=== PATIENT | male | born 1985 | race Caucasian/White ===

== ENCOUNTER 2019-11-03 22:50 | Emergency (ER) | payer SELFPAY ==
[2019-11-03 23:03] VITALS: BP 142/88; PULSE 87; RESP 18; TEMP 36.1; O2SAT 93; BMI 35.5
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
--- NOTE | 2019-11-03 23:20 | PC.NURSE ---
patient has chow to bilateral hands, thumb, 2nd, and 3rd digits, reddened and pink in appearance.
[2019-11-03 23:22] VITALS: PULSE 80; RESP 16; O2SAT 97
== END 2019-11-04 00:21 | disposition home or self-care (01) ==
PROVIDERS: Emergency Provider Nurse Practitioner Family; PCP Family Medicine
DX: T23.161A Burn of first degree of back of right hand, initial encounter (principal); T23.162A Burn of first degree of back of left hand, initial encounter; X19.XXXA Contact with other heat and hot substances, initial encounter
CPT/HCPCS: 12345; 16000; 99281; 99282

== ENCOUNTER → 2022-05-11 14:00 | Outpatient (BNVA) | payer BC, SELFPAY | PROVIDERS: PCP Family Medicine; Visit Provider Family Medicine | DX: Z51.81 Encounter for therapeutic drug level monitoring (principal); E11.9 Type 2 diabetes mellitus without complications; Z13.220 Encounter for screening for lipoid disorders; K42.9 Umbilical hernia without obstruction or gangrene; Z00.00 Encounter for general adult medical examination without abnormal findings | CPT/HCPCS: 80053; 80061; 83036; 83721; 85025 ==

== ENCOUNTER 2023-08-24 07:41 | Inpatient (IN) | payer BC, SELFPAY ==
[2023-08-24] VITALS (11 sets, daily range): BP systolic 118–150; BP diastolic 68–85; PULSE 66–93; RESP 16–24; TEMP 36.2–37.1; O2SAT 92–98; BMI 28.1; BMI 29.2
--- NOTE | 2023-08-24 07:52 | W.ED.ABDPA2 ---
HPI - Abdominal Pain General: Chief Complaint: Abdominal Pain Stated Complaint: abd pain Time Seen by Provider: 08/24/23 07:47 Source: patient Mode of arrival: ambulatory History of Present Illness: 37-year-old male presents emergency room with severe abdominal pain. He states he has an umbilical hernia that they consider repairing a few years ago but because of the COVID pandemic it was not felt to be emergent and was delayed. He generally not been bothering him the last while so they had not pursued treatment. Yesterday it began to worsen including nausea and vomiting. He is persistent worsening pain today. No previous abdominal surgeries. MD elicited complaint: abdominal pain Onset (ago): day(s) (2) Pain Consistency: constant Location: Periumbilical Severity: moderate Quality: cramping Exacerbating factors: nothing Relieving factors: nothing Associated Symptoms: Reports nausea and vomiting; Denies no associated symptoms, anorexia, belching, bloating, change in bowel habits, change in stool character, chills, coffee ground emesis, constipation, GI cramping, diarrhea, dyspepsia, dysuria, excessive flatus, fever(s), heartburn, hematochezia, hematuria, hematemesis, fecal incontinence, loose stools, melena, poor appetite, syncope and other Review of Systems Const: Denies: fever(s) or chills Card: Denies: chest pain or syncope Resp: Denies: dyspnea GI: Reports: abdominal pain, nausea and vomiting; Denies: hematemesis, coffee ground emesis, heartburn, diarrhea, constipation, bloating, GI cramping, belching, excessive flatus, fecal incontinence, change in bowel habits, change in stool character, hematochezia, melena or other : Denies: flank pain, dysuria, urinary frequency, urinary urgency or hematuria Musc: Denies: neck pain or back pain Skin/Breast: Denies: rash PFSH ED PFSH: Medical History Umbilical hernia Hypertension Diabetes Family History Denies family history of Anesthesia complication Bleeding disorder Social History Smoking and tobacco/nicotine status: never used tobacco/nicotine Alcohol intake: current Alcohol intake frequency: holidays/special occasions only Alcohol type: beer Substance/Drug Use: never Physical Exam Const: GENERAL APPEARANCE: cooperative and comfortable ORIENTATION/CONSCIOUSNESS: Yes awake, Yes oriented to person, Yes oriented to place and Yes oriented to time HENMT: COMMON NORMALS: normocephalic, atraumatic and hearing grossly normal bilaterally HEAD & SCALP: normocephalic and atraumatic Resp: COMMON NORMALS: normal respiratory effort, No retractions, No use of accessory muscles and clear to auscultation bilaterally AUSCULTATION: clear to auscultation bilaterally Cardio: COMMON NORMALS: regular rate, regular rhythm and No murmurs present (Cardio) RATE: regular rate RHYTHM: regular rhythm GI: COMMON NORMALS: No hepatosplenomegaly present AUSCULTATION: Yes normoactive bowel sounds PALPATION: Yes Tenderness to palpation present (GI) (Periumbilical), No Guarding due to palpation present (GI) and Yes No hepatosplenomegaly present OTHER: Incarcerated supraumbilical hernia able to partially reduce, exquisitely uncomfortable for patient. : COMMON NORMALS: Yes no CVA tenderness BLADDER/KIDNEY EXAM: Yes no CVA tenderness Back/Pelvis: COMMON NORMALS: no CVA tenderness Extremity: COMMON NORMALS: normal to inspection, capillary refill normal, no clubbing, cyanosis or edema, no calf tenderness and no pedal edema Neuro: SENSORIUM/ORIENTATION: Yes oriented to person, Yes oriented to place and Yes oriented to time Skin: COMMON NORMALS: no rashes or lesions noted GENERAL SKIN EXAM: no rashes or lesions noted Course Vital Signs: Vital signs: Vital Signs Temperature 98.0 F 08/24/23 07:54 Pulse Rate 93 08/24/23 07:54 Respiratory Rate 18 08/24/23 11:37 Blood Pressure 118/76 08/24/23 09:10 Pulse Oximetry 98 08/24/23 11:37 Oxygen Delivery Me thod Room Air 08/24/23 10:01 MDM - Abdominal Pain Medical Decision Making Patient has incarcerated omental fat and umbilical hernia which is nonreducible. On CT he does have a high-grade bowel obstruction with a transition point. Discussed with surgery will admit consult medicine for management of his diabetes. Fluids given and she started placement confirmed. Dr. Celis is attending he will see the patient on the floor. Medical Records I reviewed the patient's medical records. Lab Data I reviewed the patient's lab results. 08/24/23 08:00 08/24/23 08:00 Labs/Radiology: Laboratory Results WBC 11.12 10^3/uL (3.29-11.43) 08/24/23 08:00 RBC 5.23 10^6/uL (3.85-5.65) 08/24/23 08:00 Hgb 15.50 g/dL (11.27-16.99) 08/24/23 08:00 Hct 45.3 % (37-53) 08/24/23 08:00 MCV 86.6 fl (82-101) 08/24/23 08:00 MCH 29.6 pg (27-33) 08/24/23 08:00 MCHC 34.2 g/dL (30-55) 08/24/23 08:00 RDW 12.6 % (12.1-15.1) 08/24/23 08:00 Plt Count 251 10^3/cmm (157-399) 08/24/23 08:00 MPV 9.7 fL (7.4-10.4) 08/24/23 08:00 Neut % (Auto) 79.4 % 08/24/23 08:00 Lymph % (Auto) 11.3 % 08/24/23 08:00 [place] % (Auto) 8.4 % 08/24/23 08:00 Eos % (Auto) 0.4 % 08/24/23 08:00 Baso % (Auto) 0.2 % 08/24/23 08:00 Neut # (Auto) 8.84 10^3/uL (1.8-7.7) H 08/24/23 08:00 Lymph # (Auto) 1.3 10^3/uL (0.8-4.8) 08/24/23 08:00 [place] # (Auto) 0.9 10^3/uL (0.2-0.9) 08/24/23 08:00 Eos # (Auto) 0.0 10^3/uL (0.0-0.8) 08/24/23 08:00 Baso # (Auto) 0.0 10^3/uL (0.0-0.1) 08/24/23 08:00 Nucleated RBC % (auto) 0 % 08/24/23 08:00 Nucleated RBCs # 0.0 /100WBC 08/24/23 08:00 Sodium 134 mmol/L (136-145) L 08/24/23 08:00 Potassium 4.0 mmol/L (3.5-5.1) 08/24/23 08:00 Chloride 101 mmol/L (98-107) 08/24/23 08:00 Carbon Dioxide 21 mmol/L (22-29) L 08/24/23 08:00 Anion Gap 16.0 (5-19) 08/24/23 08:00 BUN 15 mg/dL (6-20) 08/24/23 08:00 Creatinine 0.8 mg/dL (0.7-1.2) 08/24/23 08:00 GFR Calculation 108.8 mL/min (90-130) 08/24/23 08:00 Glucose 246 mg/dL (65-115) H 08/24/23 08:00 Calculated Osmolality 287 mOsm/kg (285-295) 08/24/23 08:00 Calcium 8.9 mg/dL (8.5-10.5) 08/24/23 08:00 Total Bilirubin 0.6 mg/dL (0.15-1.2) 08/24/23 08:00 AST 11 U/L (0-40) 08/24/23 08:00 ALT 12 U/L (0-41) 08/24/23 08:00 Alkaline Phosphatase 78 U/L (40-130) 08/24/23 08:00 Total Protein 7.3 g/dL (6.6-8.7) 08/24/23 08:00 Albumin 4.0 g/dL (3.5-5.2) 08/24/23 08:00 Globulin 3.3 g/dL (1.3-4.6) 08/24/23 08:00 Lipase 22 U/L (13-60) 08/24/23 08:00 Urine Color Yellow (Yellow) 08/24/23 08:10 Urine Appearance Clear (CLEAR) 08/24/23 08:10 Urine pH 5 (5-7) 08/24/23 08:10 Ur Specific [place] 1.025 (1.005-1.030) 08/24/23 08:10 Urine Protein Neg (Negative) 08/24/23 08:10 Urine Glucose (UA) 4+ (Normal) H 08/24/23 08:10 Urine Ketones 1+ (Negative) H 08/24/23 08:10 Urine Blood Neg (Negative) 08/24/23 08:10 Urine Nitrate Negative (Negative) 08/24/23 08:10 Urine Bilirubin Neg (Negative) 08/24/23 08:10 Urine Urobilinogen Norm mg/dL (Negative) 08/24/23 08:10 Ur Leukocyte Esterase Negative (Negative) 08/24/23 08:10 All radiology interpretation(s) finalized by discharge Discharge Plan Discharge Patient Disposition: Admitted As Inpatient Admit Provider: Kevin Celis Clinical Impression: Small bowel obstruction, Diabetes Condition: Stable Coding Level of Care Code ED 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
[2023-08-24 08:04] LABS: Basophils % 0.2 %; Eosinophils % 0.4 %; Hematocrit 45.3 % (37-53); Lymphocytes # 1.3 10^3/uL (0.8-4.8); Lymphocytes % 11.3 %; Mean Corpuscular HGB Conc 34.2 g/dL (30-55); Mean Corpuscular Hemoglobin 29.6 pg (27-33); Mean Corpuscular Volume 86.6 fl (82-101); Mean Platelet Volume 9.7 fL (7.4-10.4); Monocytes # 0.9 10^3/uL (0.2-0.9); Monocytes % 8.4 %; Neutrophils # 8.84 10^3/uL (1.8-7.7); Neutrophils % 79.4 %; Nucleated Red Blood Cells % 0 %; Platelet Count 251 10^3/cmm (157-399); Red Blood Count 5.23 10^6/uL (3.85-5.65); Red Cell Distribution Width 12.6 % (12.1-15.1); White Blood Count 11.12 10^3/uL (3.29-11.43)
--- NOTE | 2023-08-24 08:04 | CT_ITS ---
WS: [id number] CT ABDOMEN AND PELVIS NONCONTRAST HISTORY: Abdominal pain TECHNIQUE: Imaging performed through the abdomen and pelvis. Coronal and sagittal reformats are submi tted. All CT scans at [facility] use at least one of these dose optimization techniques: auto mated exposure control; mA and/or kV adjustment per patient size (includes targeted exams where dose is matched to clinical indication); or iterative reconstruction. DLP: 715.01 mGy.cm COMPARISON: None available. Lower thorax: Lung bases are clear. Visualized heart is normal. No hiatal hernia. Liver: Enlarged liver with low-attenuation from hepatic steatosis. Gallbladder: Variable density in the gallbladder. Suspect sludge is present. There is no gallbladder hydrops or wall thickening. Pancreas: Normal size and attenuation. Normal pancreatic duct. No pancreatitis or mass. Spleen: Normal. Adrenal glands: Normal. No mass. Right kidney: Nonobstructing 2 mm calcification upper pole. Left kidney: Normal size kidney with no mass or hydronephrosis. Aorta: Normal abdominal aorta, no aneurysm or atherosclerosis. No free fluid or intraperitoneal air. There are several prominent lymph nodes in the central mesenter y measuring up to 10 mm. No pathologic adenopathy. GI tract: Stomach is markedly distended with fluid. There is a high-grade small bowel obstruction wit h loops measuring up to 4.0 cm in diameter. Increased fluid and air within the small bowel. The dista l small bowel is collapsed. The suspected transition point is in the mid abdomen where there is a fo sophie wall thickening of the small bowel. Normal appendix. Abdominal wall: Small bilobed umbilical hernia contains fat only. Pelvis: Negative. Osseous structures: Unremarkable. IMPRESSION: 1. High-grade small bowel obstruction. Transition point appears to be within the mid to distal jejun um. The distal small bowel is normal caliber. There is a focal area of wall thickening in the central abdomen which is probably the site of obstruction. 2. Small mesenteric lymph nodes are probably reactive. 3. Normal appendix. 4. Hepatic steatosis and hepatomegaly. 5. Slight increased attenuation within the gallbladder is probably sludge and may be due to of fasti ng state. No wall thickening or pericholecystic fluid.
[2023-08-24] MEDS: ondansetron 2 mg/ML SDV 2 mL 4 MG IVP ×2 (08:20→09:03)
[2023-08-24] MEDS: morphine 4 mg/mL SDV 1 mL IVP ×4 (08:20→16:54)
[2023-08-24] MEDS: sodium chloride 0.9% 1,000 ML 999 ML IV (08:21)
[2023-08-24 08:25] LABS: Alanine Aminotransferase 12 U/L (0-41); Alkaline Phosphatase 78 U/L (40-130); Aspartate Amino Transferase 11 U/L (0-40); Blood Urea Nitrogen 15 mg/dL (6-20); Calcium 8.9 mg/dL (8.5-10.5); Carbon Dioxide 21 mmol/L (22-29); Chloride 101 mmol/L (98-107); Creatinine Clr Calc Pharmacy 129.3201; Globulin 3.3 g/dL (1.3-4.6); Glomerular Filtration Rate 108.8 mL/min (90-130); Glucose 246 mg/dL (65-115); Lipase 22 U/L (13-60); Osmolality Calculated 287 mOsm/kg (285-295); Sodium 134 mmol/L (136-145); Total Bilirubin 0.6 mg/dL (0.15-1.2); Total Protein 7.3 g/dL (6.6-8.7)
[2023-08-24 08:29] LABS: Add Urine Microscopic? NO; Charge for UA Resulting for Rev
[2023-08-24 08:35] LABS: Glucose Urine UA 4+ (Normal); Protein Urine Neg (Negative); Specific Gravity, Urine 1.025 (1.005-1.030); Urine Appearance Clear (CLEAR); Urine Color Yellow (Yellow); pH Urine 5 (5-7)
[2023-08-24 08:36] LABS: Bilirubin Urine Neg (Negative); Blood Urine Neg (Negative); Ketones Urine 1+ (Negative); Leukocyte Esterase Urine Negative (Negative); Nitrate Urine Negative (Negative); Urobilinogen Urine Norm (Negative)
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
--- NOTE | 2023-08-24 09:58 | PC.NURSE ---
[facility]S HERE TO TAKE PT TO [facility]
--- NOTE | 2023-08-24 10:24 | XR_ITS ---
WS: [id number] Portable AP upright chest, 08/24/2023 Clinical Data: ng placement Comparison: None. Findings: An AP view of the lower chest and upper abdomen was obtained. The nasogastric tube appears to end in the fundus. The small bowel is dilated. Impression: 1. Nasogastric tube ends in the fundus of the stomach. 2. Small bowel obstruction.
--- NOTE | 2023-08-24 11:56 | PC.NURSE ---
NG tube placed to low intermittent suction as ordered. Patient tolerated well, c/o throat discomfort secondary to NG tube.
--- NOTE | 2023-08-24 12:53 | P.CONIM_ITS ---
Providers/Reason For Consult 2 Consulting Physician/Specialty*: Rafael Wright MD, hospitalist Reason for Consult*: Diabetes management Requesting Physician: Dr. Celis Attending Physician: Kevin Celis DO Primary Care Provider: Kenneth Hudson MD History of Present Illness History of Present Illness Jose Murillo is a 37 year old male with past history of diabetes and hypertension currently not on medications who presents to the hospital with abdominal discomfort, supraumbilical hernia, nausea. This started around Monday, after eating at [employer]. He is also had some loose stools, and even had a bowel movement this morning. He has not vomited, although he felt very much like he could. He denies any blood in his stool, black or tarry stools. He denies any prior history of bowel obstruction. He was on metformin in the past for his diabetes but has not taken it in a while. He has lost a significant amount of weight intentionally to help with medical problems. He denies any prior surgeries. He reports no history of inflammatory bowel disease. Review of Systems 2 General: Reports: 10 or more systems reviewed and unremarkable except in HPI and below Card: Denies: chest pain Resp: Denies: dyspnea GI: Reports: abdominal pain and nausea; Denies: vomiting Medications/Allergies Home Medications Medication Instructions Recorded Confirmed Last Taken Type acetaminophen 500 mg tablet 1,000 mg PO Q6H PRN Pain 08/24/23 08/24/23 Unknown History ibuprofen 200 mg capsule 1,000 mg PO Q6H PRN Pain 08/24/23 08/24/23 08/24/23 History Allergies Allergy/AdvReac Type Severity Reaction Status Date / Time No Known Allergies Allergy Verified 08/24/23 07:57 Current Medications Generic Name Dose Route Start Last Admin Trade Name Freq PRN Reason Stop Dose Admin Morphine Sulfate 4 mg 08/24/23 12:14 08/24/23 12:31 Morphine 4 Mg/Ml Sdv 1 Ml IVP 4 mg Q4H PRN Administration SEVERE PAIN PFSH Acute 2 PFSH: Medical History (Updated 08/24/23 @ 13:06 by Rafael Wright MD) Umbilical hernia Hypertension Diabetes Family History Denies family history of Anesthesia complication Bleeding disorder Social History Smoking and tobacco/nicotine status: never used tobacco/nicotine Alcohol intake: current Alcohol intake frequency: holidays/special occasions only Alcohol type: beer Substance/Drug Use: never Vitals/I&O/Wt Last Vital Signs Temp 98.0 F 08/24/23 07:54 Pulse 93 08/24/23 07:54 Resp 16 08/24/23 12:31 BP 118/76 08/24/23 09:10 Pulse Ox 98 08/24/23 11:37 O2 Del Method Room Air 08/24/23 12:14 08/23/23 08/24/23 08/24/23 22:59 06:59 14:59 Intake Total 1000 / 1000 Balance 1000 / 1000 Weight last 48 hrs Weight 84.878 kg Weight 81.647 kg Physical Exam 2 Narrative: General exam is white male, with an NG tube in, currently in no distress HEENT: Atraumatic normocephalic. Pupils equally round. Oropharynx clear. Neck is supple no lymphadenopathy thyromegaly Cardiovascular regular rate and rhythm, no murmur Lungs clear no wheezing or crackles Abdomen is soft. Tenderness is present, mainly supraumbilical. Hernia is noted, supraumbilically. He had increased tenderness overlying this. exams deferred Extremities no sinus clubbing edema, cap refill brisk Skin no rash Neuro no focal deficits Data 08/24/23 08:00 08/24/23 08:00 Other Labs: Hemoglobin A1c in May was 10.5 Urinalysis negative Chest x-ray by my read no infiltrate, dilated small bowel loops, nasogastric tube below the diaphragm Abdominal pelvis CT, which I reviewed as well demonstrates dilated bowel loops consistent with small bowel obstruction. A&P Assessment and plan (1) Small bowel obstruction: Patient presents with small bowel obstruction Surgery primary NG has been placed Pain control with morphine, nausea control with Zofran Add IV fluids CBC, CMP in the morning I do not see any indication for IV antibiotics currently. (2) Umbilical hernia: Per the patient, and the emergency department note, there was attempt at reduction of his hernia in the emergency department which was appropriate. At time of CT only omental fat was noted in the hernia. Surgery will address the importance of the hernia currently. (3) Diabetes: Patient with history of diabetes Check hemoglobin A1c Mild sliding scale insulin (4) Hypertension: Monitor blood pressures. Current blood pressure is acceptable Plan Full code SCDs for DVT prophylaxis. Defer pharmacological DVT prophylaxis to surgery Thank you for this consultation Consult Attestations 2 Medical Necessity Statement: As per primary Diagnoses Small bowel obstruction K56.609 Umbilical hernia K42.9 Diabetes E11.9 Hypertension I10 Time Spent (min) 46
[2023-08-24 13:36] LABS: Thyroid Stimulating Hormone 1.47 uIU/mL (0.27-4.20)
[2023-08-24 14:11] LABS: Estmated Average Glucose 243; Hemoglobin A1C 10.1 % (4.0-6.0)
--- NOTE | 2023-08-24 15:14 | P.HP_ITS ---
Providers/Chief Complaint 2 Admitting Physician: Kevin Celis DO Primary Care Provider: Kenneth Hudson MD Chief Complaint: abd pain History of Present Illness Jose Murillo is a 37 year old male who presented to the hospital with a 2-day history of diffuse abdominal pain and nausea. He reports that he has been passing flatus and had a bowel movement earlier today. He denies any emesis. Denies any diarrhea, constipation, hematochezia and/or melena. He knows that he has an umbilical hernia which has been present for several years at least. The pain is sharp, severe and diffuse but located mostly over his umbilical hernia. The pain does not radiate. Palpation makes pain worse. Nothing makes pain better. Review of Systems 2 General: Reports: 10 or more systems reviewed and unremarkable except in HPI and below Medications/Allergies Home Medications Medication Instructions Recorded Confirmed Last Taken Type acetaminophen 500 mg tablet 1,000 mg PO Q6H PRN Pain 08/24/23 08/24/23 Unknown History ibuprofen 200 mg capsule 1,000 mg PO Q6H PRN Pain 08/24/23 08/24/23 08/24/23 History Allergies Allergy/AdvReac Type Severity Reaction Status Date / Time No Known Allergies Allergy Verified 08/24/23 07:57 PFSH Acute 2 PFSH: Medical History Umbilical hernia Hypertension Diabetes Family History Denies family history of Anesthesia complication Bleeding disorder Social History Smoking and tobacco/nicotine status: never used tobacco/nicotine Alcohol intake: current Alcohol intake frequency: holidays/special occasions only Alcohol type: beer Substance/Drug Use: never Vitals/I&O/Wt Last Vital Signs Temp 98.9 F 08/25/23 07:50 Pulse 84 08/25/23 07:50 Resp 17 08/25/23 07:50 BP 121/84 08/25/23 07:50 Pulse Ox 92 08/25/23 07:50 O2 Del Method Room Air 08/25/23 04:00 08/24/23 08/25/23 08/25/23 22:59 06:59 14:59 Intake Total 931.25 / 1931.25 950 / 950 Balance 931.25 / 1930.25 950 / 950 Weight last 48 hrs Weight 190 lb 14.4 oz Weight 187 lb 2 oz Weight 180 lb Physical Exam 2 Narrative: General : Patient is well developed , no acute distress, oriented x3 Head : Normal cephalic, a-traumatic. Ears : Pinnae and external canal are normal. Hearing is normal. Eyes : PERRLA, Sclera and injection are normal. No conjunctival discharge. Nose : Mucous membranes are without erythema. Throat : buccal mucosa is normal, gums are without significant recession or hypertrophy. Lungs : Equal chest rise bilaterally, no use of accessory muscles, trachea is midline. Cor : Rate and rhythm are normal. Abdomen : Soft, ND, tender to palpation over an incarcerated umbilical hernia that I was able to manually reduce, no overlying skin color changes, hernia defect is clinically 1.5 cm in diameter no g/r/m Extremities : No edema, no cyanosis or clubbing, dorsalis pedis pulses are present bilaterally, non-tender to palpation of calves. Upper extremities are normal bilaterally. Back : non-tender to palpation, no CVA tenderness. Neuro : CN II - XII intact, Upper and lower extremities have equal and full strength Data 08/25/23 05:50 08/25/23 05:50 A&P Assessment and plan (1) Incarcerated umbilical hernia: (2) Partial small bowel obstruction: Plan I was able to manually reduce the vast majority of his hernia, however some omental fat remains incarcerated inside See orders Tomorrow to OR for laparoscopic umbilical hernia repair with mesh The risks and benefits of the procedure, including but not limited to, bleeding, infection, mesh infection requiring mesh excision antibiotic therapy and repeat surgery, damage surrounding structures, conversion to an open procedure, scar, numbness, pain, and/or recurrence were explained to the patient. Patient is understanding of the risks and wishes to proceed. Attestations 2 Medical Necessity Statement*: Patient requires at least 2 nights in the hospital for treatment of small bowel obstruction and incarcerated umbilical hernia Coding Level of Care Code 85805 Diagnoses Incarcerated umbilical hernia K42.0 Partial small bowel obstruction K56.600
[2023-08-24] MEDS: sodium chloride 0.9% 1,000 ML 125 ML IV ×2 (17:08→23:47)
[2023-08-24 17:15] LABS: Glucose Point of Care 139 mg/dL (70-110)
[2023-08-24] MEDS: HYDROmorphone 1 mg/mL INJ 1 mL IVP ×2 (18:14→22:54)
[2023-08-24 21:15] LABS: Glucose Point of Care 135 mg/dL (70-110)
[2023-08-25] VITALS (22 sets, daily range): BP systolic 112–140; BP diastolic 52–85; PULSE 63–93; RESP 15–18; TEMP 36.3–37.2; O2SAT 90–99; BMI 29.9
[2023-08-25 06:14] LABS: Basophils % 0.4 %; Eosinophils # 0.1 10^3/uL (0.0-0.8); Eosinophils % 1.3 %; Hematocrit 43.5 % (37-53); Lymphocytes # 1.4 10^3/uL (0.8-4.8); Lymphocytes % 18.7 %; Mean Corpuscular HGB Conc 32.2 g/dL (30-55); Mean Corpuscular Hemoglobin 28.8 pg (27-33); Mean Corpuscular Volume 89.5 fl (82-101); Mean Platelet Volume 9.9 fL (7.4-10.4); Monocytes # 0.7 10^3/uL (0.2-0.9); Monocytes % 9.3 %; Neutrophils # 5.35 10^3/uL (1.8-7.7); Nucleated Red Blood Cells % 0 %; Platelet Count 225 10^3/cmm (157-399); Red Blood Count 4.86 10^6/uL (3.85-5.65); Red Cell Distribution Width 12.6 % (12.1-15.1); White Blood Count 7.64 10^3/uL (3.29-11.43)
[2023-08-25 06:35] LABS: Alanine Aminotransferase 13 U/L (0-41); Albumin Level 3.5 g/dL (3.5-5.2); Alkaline Phosphatase 70 U/L (40-130); Anion Gap 13.6 (5-19); Aspartate Amino Transferase 14 U/L (0-40); Blood Urea Nitrogen 10 mg/dL (6-20); Calcium 7.9 mg/dL (8.5-10.5); Carbon Dioxide 25 mmol/L (22-29); Chloride 101 mmol/L (98-107); Globulin 2.9 g/dL (1.3-4.6); Glomerular Filtration Rate 108.8 mL/min (90-130); Glucose 151 mg/dL (65-115); Osmolality Calculated 284 mOsm/kg (285-295); Potassium 3.6 mmol/L (3.5-5.1); Sodium 136 mmol/L (136-145); Total Bilirubin 0.7 mg/dL (0.15-1.2); Total Protein 6.4 g/dL (6.6-8.7)
[2023-08-25 06:56] LABS: Glucose Point of Care 131 mg/dL (70-110)
[2023-08-25] MEDS: morphine 4 mg/mL SDV 1 mL IVP ×3 (07:39→22:31)
[2023-08-25] MEDS: sodium chloride 0.9% 1,000 ML 125 ML IV ×2 (07:41→20:51)
--- NOTE | 2023-08-25 08:12 | P.PN_ITS ---
Subjective 2 Subjective: No concerns overnight. Significantly less discomfort. Did have a stool. Medications: Reviewed: Yes Vitals/I&O/Wt Last Vital Signs Temp 98.9 F 08/25/23 07:50 Pulse 84 08/25/23 07:50 Resp 17 08/25/23 07:50 BP 121/84 08/25/23 07:50 Pulse Ox 92 08/25/23 07:50 O2 Del Method Room Air 08/25/23 04:00 08/24/23 08/25/23 08/25/23 22:59 06:59 14:59 Intake Total 931.25 / 1931.25 950 / 950 Balance 931.25 / 1931.25 950 / 950 Weight last 48 hrs Weight 86.591 kg Weight 84.878 kg Weight 81.647 kg Physical Exam 2 Narrative: General exam is white male, with an NG tube in, currently in no distress Neck is supple no lymphadenopathy thyromegaly Cardiovascular regular rate and rhythm, no murmur Lungs clear no wheezing or crackles Abdomen is soft. No significant tenderness. Hernia soft Extremities no sinus clubbing edema, cap refill brisk Data 08/25/23 05:50 08/25/23 05:50 A&P Assessment and plan (1) Small bowel obstruction: Patient presents with small bowel obstruction Surgery primary NG has been placed Pain control with morphine, nausea control with Zofran Continue fluids Clinically improved I do not see any indication for IV antibiotics currently. (2) Umbilical hernia: Per the patient, and the emergency department note, there was attempt at reduction of his hernia in the emergency department which was appropriate. At time of CT only omental fat was noted in the hernia. Surgery will address the importance of the hernia in relation to the small bowel obstruction (3) Diabetes: Patient with history of diabetes A1c elevated. Metformin indicated upon discharge, 500 mg twice daily. Discussed in detail with patient. Mild sliding scale insulin currently (4) Hypertension: Monitor blood pressures. Current blood pressure is acceptable Plan Full code SCDs for DVT prophylaxis. Defer pharmacological DVT prophylaxis to surgery Thank you for this consultation Attestations 2 Medical Necessity Statement*: As per primary Diagnoses Small bowel obstruction K56.609 Umbilical hernia K42.9 Diabetes E11.9 Hypertension I10 Time Spent (min) 18
--- NOTE | 2023-08-25 09:32 | PC.CHAP ---
Pastoral Care Encounter/Spiritual Assessment Type of Contact [] Declined assistant facility manager visit [] Patient/Family/Request visit [] Outpatient visit [] Follow-up visit [] Physician referral [] Code/Alert [x] Routine visit [] Staff referral [] Actively dying [] Patient sleeping [] Family support [] [] Out of room [] Palliative care [] [] Receiving care in room [] Pre-surgical visit [] Trauma [] Long length of stay [] ICU visit [] Other: Relational/Emotional Strength [x] Patient feels connected with others/family/visitors/staff [] Distress [] Loneliness/isolation [] Abandonment Spirituality of Patient [x] Person of Mandy [] Attends Bahai of their Mandy [x] Believes in Prayer [] Reads Bible or Congregational materials [] There are Spiritual issues to be addressed Development Geologist Interventions [x] Prayer [] Active listening [] Non-anxious presence [x] Spiritual/emotional support [] Crisis/trauma care [] Spiritual counseling [] Bereavement support [] Provided bereavement packet [] Provided Bible/devotional materials [] Provided toy/stuffed animal, coloring book to patient or family member [] Provided Communion [] Anointing/Clay [] Salvation [x] Completed spiritual assessment [] Other: Impact on Illness or Injury [] Angry [] Fearful [] Anxious [] Often cries [] Exhaustion [] Unable to work [] Unable to attend muslim [] Unable to walk/stand [] Unable to read [] Unable to drive [] Unable to eat/drink [] Unable to sleep [] Unable to be with family [] Patient intubated [] Other: Summary Time spent with patient 5 min
[2023-08-25 10:55] LABS: Glucose Point of Care 118 mg/dL (70-110)
--- NOTE | 2023-08-25 12:20 | P.ANESASSM_ITS ---
Pre-Anesthetic Assessment Height/Weight: Height 1.7 m Weight 86.591 kg Temp Pulse Resp BP Pulse Ox O2 Del Method 97.7 F 75 16 118/85 95 Room Air 08/25/23 12:19 08/25/23 12:19 08/25/23 12:19 08/25/23 12:19 08/25/23 12:19 08/25/23 12:19 Operation Date: 08/25/23 13:00 Proposed Procedures p Incisional Hernia Repair w/ Mesh(Not Applicable) - Kevin Celis DO Familial anesthetic complications: none Was Beta Sushila taken within 24 hours: N/A Was Clonidine taken within 24 hours: N/A Last intake: Intake Last Liquid Date 08/25/23 Last Liquid Time 02:00 Last Solid Date 08/23/23 Last Solid Time 21:00 Social No alcohol and No tobacco Exam alert, oriented x 3, clear to auscultation bilaterally and regular rate & rhythm Airway Submandibular: within normal limits Cervical ROM: within normal limits Mallampati: Class II Dentition: chipped CV/HEM Hypertension GI Incarcerated hernia with SBO Metabolic Diabetes Mellitus Anesthetic Plan ASA status: 2E Anesthesia: General (RSI) Medications/Allergies Home Medications Medication Instructions Recorded Confirmed Last Taken Type acetaminophen 500 mg tablet 1,000 mg PO Q6H PRN Pain 08/24/23 08/24/23 Unknown History ibuprofen 200 mg capsule 1,000 mg PO Q6H PRN Pain 08/24/23 08/24/23 08/24/23 History Allergies Allergy/AdvReac Type Severity Reaction Status Date / Time No Known Allergies Allergy Verified 08/24/23 07:57 Current Medications Generic Name Dose Route Start Last Admin Trade Name Freq PRN Reason Stop Dose Admin Hydromorphone HCl 1 mg 08/24/23 18:08 08/24/23 22:54 Hydromorphone 1 Mg/Ml Inj 1 Ml IVP 1 mg Q3H PRN Administration PAIN Sodium Chloride 1,000 mls @ 125 mls/hr 08/24/23 13:15 08/25/23 07:41 Sodium Chloride 0.9% IV 125 mls/hr .Q8H VIOLETTA Administration Insulin Human Lispro 0 unit 08/24/23 18:00 08/25/23 11:16 Insulin Lispro 100 Unit/1 Ml SUBCUT Not Given WM&BEDTIME VIOLETTA Protocol Morphine Sulfate 4 mg 08/24/23 12:14 08/25/23 07:39 Morphine 4 Mg/Ml Sdv 1 Ml IVP 4 mg Q4H PRN Administration SEVERE PAIN PFSH Anesthesia Medical History Umbilical hernia Hypertension Diabetes Family History Denies family history of Anesthesia complication Bleeding disorder Social History Smoking and tobacco/nicotine status: never used tobacco/nicotine Alcohol intake: current Alcohol intake frequency: holidays/special occasions only Alcohol type: beer Substance/Drug Use: never Data Anesthesia 08/25/23 05:50 08/25/23 05:50 Short CBC 08/24/23 08/25/23 Range/Units 08:00 05:50 WBC 11.12 7.64 (3.29-11.43) 10^3/uL Hgb 15.50 14.00 (11.27-16.99) g/dL Hct 45.3 43.5 (37-53) % MCV 86.6 89.5 (82-101) fl Plt Count 251 225 (157-399) 10^3/cmm Neut % (Auto) 79.4 70.0 % Neut # (Auto) 8.84 H 5.35 (1.8-7.7) 10^3/uL BMP 08/24/23 08/25/23 08:00 05:50 Sodium 134 L 136 Potassium 4.0 3.6 Chloride 101 101 Carbon Dioxide 21 L 25 BUN 15 10 Creatinine 0.8 0.8 Glucose 246 H 151 H Calcium 8.9 7.9 L Liver Function 08/24/23 08/25/23 Range/Units 08:00 05:50 Total Bilirubin 0.6 0.7 (0.15-1.2) mg/dL AST 11 14 (0-40) U/L ALT 12 13 (0-41) U/L Alkaline Phosphatase 78 70 (40-130) U/L Albumin 4.0 3.5 (3.5-5.2) g/dL Urine 08/24/23 Range/Units 08:10 Urine Color Yellow (Yellow) Urine Appearance Clear (CLEAR) Urine pH 5 (5-7) Ur Specific [place] 1.025 (1.005-1.030) Urine Protein Neg (Negative) Urine Glucose (UA) 4+ H (Normal) Urine Ketones 1+ H (Negative) Urine Nitrate Negative (Negative) Urine Bilirubin Neg (Negative) Ur Leukocyte Esterase Negative (Negative) Cardiac Studies: 2 No Data to Display
[2023-08-25] MEDS: sodium chloride 0.9% 1,000 ML 30 ML IV (12:30)
--- NOTE | 2023-08-25 13:11 | P.PN_ITS ---
Vitals/I&O/Wt Last Vital Signs Temp 97.7 F 08/25/23 12:19 Pulse 75 08/25/23 12:19 Resp 16 08/25/23 12:19 BP 118/85 08/25/23 12:19 Pulse Ox 95 08/25/23 12:19 O2 Del Method Room Air 08/25/23 12:19 08/24/23 08/25/23 08/25/23 22:59 06:59 14:59 Intake Total 931.25 / 1931.25 950 / 950 Balance 931.25 / 1931.25 950 / 950 Weight last 48 hrs Weight 190 lb 14.4 oz Weight 187 lb 2 oz Weight 180 lb Data 08/25/23 05:50 08/25/23 05:50 A&P Assessment and plan (1) Incarcerated umbilical hernia: (2) Partial small bowel obstruction: Plan laparoscopic umbilical hernia repair with mesh The risks and benefits of the procedure, including but not limited to, bleeding, infection, mesh infection requiring mesh excision antibiotic therapy and repeat surgery, damage surrounding structures, conversion to an open procedure, scar, numbness, pain, and/or recurrence were explained to the patient. Patient is understanding of the risks and wishes to proceed. Attestations 2 Medical Necessity Statement*: Patient requires at least 1 more night in the hospital for recovery after incarcerated umbilical hernia repair and partial small bowel obstruction Coding Level of Care Code Acute Code for Chg Fwd Diagnoses Incarcerated umbilical hernia K42.0 Partial small bowel obstruction K56.600
[2023-08-25] MEDS: piperacillin-tazobactam 3.375 GM in sodium chloride 0.9% (plus) 50 ML IV ×2 (13:37→21:34)
[2023-08-25] MEDS: lidocaine-epi 2% PF 1:200,000 20 mL SDV INJECTION (14:08)
--- NOTE | 2023-08-25 14:21 | PM.OP ---
Operative Report Date of procedure: August 25, 2023 Pre-op diagnosis: Incarcerated umbilical hernia Small bowel obstruction Post-op diagnosis: Umbilical hernia incarcerated with Omentum Adhesive band causing small bowel obstruction Procedure done: Laparoscopic repair of incarcerated umbilical hernia with mesh Laparoscopic lysis of adhesive band Implants: 11 cm round Ventralight mesh Specimens removed/disposition: Hernia sac Surgeon: Kevin Celis DO Anesthesia: General and Local Estimated blood loss (mL): 5 Complications: None apparent Brief History: This very pleasant 37-year-old gentleman who presents to the hospital with an incarcerated umbilical hernia and high-grade small bowel obstruction. Laparoscopic repair of incarcerated umbilical hernia with mesh was indicated. The risk and benefits were explained and documented. Procedure: Patient was wheeled into the operative room and placed on the OR table in a supine position. Abdomen was inspected prepped and draped in usual sterile fashion. Time-out was performed and all present were in agreement. A 15 blade scalp was used to make a 5 millimeter incision left upper quadrant. A Veress needle was placed into the incision and intra-abdominal insufflation was brought to 15 millimeters of mercury. A 12 millimeter trocar was placed into the left lower quadrant. A significant amount of omentum was reduced from the incarcerated umbilical hernia. Hernia defect measured less than 2 cm in diameter. The energy but device was then used to cut out the hernia sac. A second 5 mm trocar was then placed in between the 2 trocars in the left hemiabdomen. Using 2 atraumatic graspers the small bowel was ran. An adhesive band from the omentum was crossing the small bowel and causing an obvious obstruction. This was ligated with laparoscopic ligature. No other small bowel abnormalities were identified. An 11 cm Ventralight mesh was placed into the abdomen and brought up through the umbilicus using an the Yaya-Preston. The mesh was then tacked in place in a double crown fashion. The skeleton of the mesh was removed via the left lower quadrant. The hernia sac was then removed from the abdomen via the left lower quadrant. The left lower quadrant port site was closed with an 0 Vicryl suture in a Yaya-Preston in a [id number] fashion. Incisions were closed with 4 O Vicryl in a subcuticular interrupted fashion. Skin glue was applied. A dressing that included cotton balls and a Tegaderm was placed over the umbilicus. Patient tolerated the procedure well.
[2023-08-25] MEDS: fentaNYL 50 mcg/mL INJ 2mL IVP (14:57)
[2023-08-25] MEDS: ondansetron 2 mg/ML SDV 2 mL 4 MG IVP (15:15)
--- NOTE | 2023-08-25 15:25 | ANE.PACU2 ---
Inpatient post-anesthesia follow up: Airway intact: Yes Vital signs: Temperature 97.4 F Pulse Rate 65 Respiratory Rate 16 Blood Pressure 121/62 Pulse Oximetry 98 Oxygen Delivery Me thod Nasal Cannula Oxygen Flow Rate 3 Fraction of Inspir ed Oxygen Hydration adequate: Yes Nausea and vomiting: No Pain level: 4 Mental status: Baseline
[2023-08-25 16:10] LABS: Glucose Point of Care 146 mg/dL (70-110)
[2023-08-25] MEDS: insulin lispro 100 unit/1 mL SUBCUT ×2 (17:57→22:32)
[2023-08-25] MEDS: HYDROmorphone 1 mg/mL INJ 1 mL IVP (19:45)
[2023-08-25 22:16] LABS: Glucose Point of Care 151 mg/dL (70-110)
[2023-08-26] VITALS (8 sets, daily range): BP systolic 102–117; BP diastolic 64–71; PULSE 58–92; RESP 16–20; TEMP 36.5–37.1; O2SAT 92–100
[2023-08-26] MEDS: HYDROmorphone 1 mg/mL INJ 1 mL IVP ×2 (01:04→10:29)
[2023-08-26] MEDS: sodium chloride 0.9% 1,000 ML 125 ML IV (05:26)
[2023-08-26] MEDS: piperacillin-tazobactam 3.375 GM in sodium chloride 0.9% (plus) 50 ML IV ×2 (05:33→12:47)
[2023-08-26] MEDS: morphine 4 mg/mL SDV 1 mL IVP (05:57)
[2023-08-26 06:50] LABS: Glucose Point of Care 125 mg/dL (70-110)
--- NOTE | 2023-08-26 08:49 | XRR_ITS ---
PROCEDURE INFORMATION: Exam: XR Abdomen Exam date and time: 08/26/2023 10:26 AM Age: 37 years old Clinical indication: Abdominal pain; Patient HX: PT refused to lay down for xray so did upright; Additional info: Abd pain TECHNIQUE: Imaging protocol: Radiologic exam of the abdomen. Views: Frontal supine view of the abdomen. 1 View. COMPARISON: CT abdomen pelvis con [id number] 08/24/2023 8:21 AM FINDINGS: Lungs: There are infiltrates in both lower lobes. Gastrointestinal tract: There are distended small bowel loops, slightly improved when compared to the CT dated 08/24/2023. Intraperitoneal space: No pneumoperitoneum. Bones/joints: Unremarkable. XR/XR KUB portable [id number] IMPRESSION: 1. New bilateral lung bases infiltrates. 2. Distended small bowel loops in the abdomen, representing small bowel obstruction.
--- NOTE | 2023-08-26 10:16 | P.PN_ITS ---
Subjective 2 Subjective: Patient is taking laps in the hallway He is stating that his pain has not subsided He is experiencing a lot of burps, not passing gas, Will request KUB Vitals/I&O/Wt Last Vital Signs Temp 97.7 F 08/26/23 08:10 Pulse 83 08/26/23 08:10 Resp 18 08/26/23 08:10 BP 117/69 08/26/23 08:10 Pulse Ox 100 08/26/23 08:10 O2 Del Method Room Air 08/26/23 08:10 O2 Flow Rate 3 08/25/23 15:20 08/25/23 08/26/23 08/26/23 22:59 06:59 14:59 Intake Total 1973.083 / 2973.083 1290 / 4263.083 50 / 50 Balance 1973.083 / 2963.083 1290 / 4253.083 50 / 50 Weight last 48 hrs Weight 88.496 kg Weight 86.591 kg Weight 84.878 kg Physical Exam 2 Narrative: She will patient is walking Awake and alert GCS 15 Walking around Stable Currently room air Dry dressing in place Data 08/25/23 05:50 08/25/23 05:50 A&P Assessment and plan (1) Umbilical hernia: (2) Partial small bowel obstruction: Plan No passage of gas or bowel movement, I will request KUB Will follow-up with Dr. Celis Currently he is on clear liquid diet Hemodynamically stable No fever Considering his diabetes patient will need Lantus because his hemoglobin A1c is around 10.1, added for tonight He will also need Lantus at the time of discharge Sugar well-controlled target blood sugar 140 to 180 mg/dL Attestations 2 Medical Necessity Statement*: Continue medical management Diagnoses Umbilical hernia K42.9 Partial small bowel obstruction K56.600
[2023-08-26 11:50] LABS: Glucose Point of Care 175 mg/dL (70-110)
[2023-08-26] MEDS: insulin lispro 100 unit/1 mL SUBCUT (12:47)
--- NOTE | 2023-08-26 12:55 | PM.DCS ---
Discharge Providers Date of Admission: 08/24/23 12:14 Date of Discharge: August 26, 2023 Attending Provider at Admission: Kevin Celis DO Attending Provider at Discharge: Graciela Benjamin MD Primary Care Provider: Kenneth Hudson MD Diagnoses at Discharge Discharge Diagnosis (1) Umbilical hernia: Status: Acute (2) Partial small bowel obstruction: Status: Acute Reason for Visit Reason for Visit: abd pain Hospital Course Hospital Course This very pleasant 37-year-old gentleman who came to the hospital with abdominal pain and distention. He was found to have an umbilical hernia incarcerated with omental fat. He underwent a laparoscopic repair of an incarcerated umbilical hernia and laparoscopic lysis of an adhesive band, relieving his small bowel obstruction. He is tolerating solid food and his pain was under control upon discharge. Physical Exam Narrative: General : Patient is well developed , no acute distress, oriented x3 Head : Normal cephalic, a-traumatic. Ears : Pinnae and external canal are normal. Hearing is normal. Eyes : PERRLA, Sclera and injection are normal. No conjunctival discharge. Nose : Mucous membranes are without erythema. Throat : buccal mucosa is normal, gums are without significant recession or hypertrophy. Lungs : Equal chest rise bilaterally, no use of accessory muscles, trachea is midline. Cor : Rate and rhythm are normal. Abdomen : Soft, ND, appropriately tender, no g/r/m Extremities : No edema, no cyanosis or clubbing, dorsalis pedis pulses are present bilaterally, non-tender to palpation of calves. Upper extremities are normal bilaterally. Back : non-tender to palpation, no CVA tenderness. Neuro : CN II - XII intact, Upper and lower extremities have equal and full strength Discharge Data Studies Completed and Pending Completed Studies During Hospitalization Category Date Time Status CT abdomen pelvis wo con [id number] Stat Cat Scan 08/24/23 08:04 Completed XR KUB portable [id number] Stat Exams 08/26/23 08:49 Completed XR chest 1V portable [id number] Stat Exams 08/24/23 10:24 Completed Pending at discharge Category Date Time Status Basic Metabolic Panel AM LABS Lab 08/27/23 04:00 Ordered Complete Blood Count w/Auto AM LABS Lab 08/27/23 04:00 Ordered Pathology: Surgical [PTH] Routine Pth 08/25/23 14:26 Received Radiology Impressions KUB X-Ray 08/26/23 08:49 IMPRESSION: 1. New bilateral lung bases infiltrates. 2. Distended small bowel loops in the abdomen, representing small bowel obstruction. Laboratory Results WBC 7.64 10^3/uL (3.29-11.43) 08/25/23 05:50 RBC 4.86 10^6/uL (3.85-5.65) 08/25/23 05:50 Hgb 14.00 g/dL (11.27-16.99) 08/25/23 05:50 Hct 43.5 % (37-53) 08/25/23 05:50 MCV 89.5 fl (82-101) 08/25/23 05:50 MCH 28.8 pg (27-33) 08/25/23 05:50 MCHC 32.2 g/dL (30-55) D 08/25/23 05:50 RDW 12.6 % (12.1-15.1) 08/25/23 05:50 Plt Count 225 10^3/cmm (157-399) 08/25/23 05:50 MPV 9.9 fL (7.4-10.4) 08/25/23 05:50 Neut % (Auto) 70.0 % 08/25/23 05:50 Lymph % (Auto) 18.7 % 08/25/23 05:50 [place] % (Auto) 9.3 % 08/25/23 05:50 Eos % (Auto) 1.3 % 08/25/23 05:50 Baso % (Auto) 0.4 % 08/25/23 05:50 Neut # (Auto) 5.35 10^3/uL (1.8-7.7) 08/25/23 05:50 Lymph # (Auto) 1.4 10^3/uL (0.8-4.8) 08/25/23 05:50 [place] # (Auto) 0.7 10^3/uL (0.2-0.9) 08/25/23 05:50 Eos # (Auto) 0.1 10^3/uL (0.0-0.8) 08/25/23 05:50 Baso # (Auto) 0.0 10^3/uL (0.0-0.1) 08/25/23 05:50 Nucleated RBC % (auto) 0 % 08/25/23 05:50 Nucleated RBCs # 0.0 /100WBC 08/25/23 05:50 Sodium 136 mmol/L (136-145) 08/25/23 05:50 Potassium 3.6 mmol/L (3.5-5.1) 08/25/23 05:50 Chloride 101 mmol/L (98-107) 08/25/23 05:50 Carbon Dioxide 25 mmol/L (22-29) 08/25/23 05:50 Anion Gap 13.6 (5-19) 08/25/23 05:50 BUN 10 mg/dL (6-20) 08/25/23 05:50 Creatinine 0.8 mg/dL (0.7-1.2) 08/25/23 05:50 GFR Calculation 108.8 mL/min (90-130) 08/25/23 05:50 Glucose 151 mg/dL (65-115) H 08/25/23 05:50 POC Glucose 175 mg/dL (70-110) H 08/26/23 11:45 Estimat Average Glucose 243 08/24/23 08:00 Hemoglobin A1c 10.1 % (4.0-6.0) H 08/24/23 08:00 Calculated Osmolality 284 mOsm/kg (285-295) L 08/25/23 05:50 Calcium 7.9 mg/dL (8.5-10.5) L 08/25/23 05:50 Total Bilirubin 0.7 mg/dL (0.15-1.2) 08/25/23 05:50 AST 14 U/L (0-40) 08/25/23 05:50 ALT 13 U/L (0-41) 08/25/23 05:50 Alkaline Phosphatase 70 U/L (40-130) 08/25/23 05:50 Total Protein 6.4 g/dL (6.6-8.7) L 08/25/23 05:50 Albumin 3.5 g/dL (3.5-5.2) 08/25/23 05:50 Globulin 2.9 g/dL (1.3-4.6) 08/25/23 05:50 Lipase 22 U/L (13-60) 08/24/23 08:00 TSH 1.47 uIU/mL (0.27-4.20) 08/24/23 08:00 Urine Color Yellow (Yellow) 08/24/23 08:10 Urine Appearance Clear (CLEAR) 08/24/23 08:10 Urine pH 5 (5-7) 08/24/23 08:10 Ur Specific [place] 1.025 (1.005-1.030) 08/24/23 08:10 Urine Protein Neg (Negative) 08/24/23 08:10 Urine Glucose (UA) 4+ (Normal) H 08/24/23 08:10 Urine Ketones 1+ (Negative) H 08/24/23 08:10 Urine Blood Neg (Negative) 08/24/23 08:10 Urine Nitrate Negative (Negative) 08/24/23 08:10 Urine Bilirubin Neg (Negative) 08/24/23 08:10 Urine Urobilinogen Norm mg/dL (Negative) 08/24/23 08:10 Ur Leukocyte Esterase Negative (Negative) 08/24/23 08:10 Procedures Performed Laparoscopic repair of incarcerated umbilical hernia and laparoscopic lysis of adhesive band Vitals Last Vital Signs Temp 97.8 F 08/26/23 12:09 Pulse 78 08/26/23 12:09 Resp 18 08/26/23 12:09 BP 111/71 08/26/23 12:09 Pulse Ox 94 08/26/23 12:09 O2 Del Method Room Air 08/26/23 12:09 O2 Flow Rate 3 08/25/23 15:20 Discharge Plan Discharge Patient Disposition: Home Condition: Stable Prescriptions: New metformin 500 mg tablet 500 mg PO BID Qty: 60 0RF Bactrim DS 800-160 mg tablet 1 tab PO BID 7 Days Qty: 14 0RF Colace 100 mg capsule 100 mg PO BID Qty: 14 0RF hydrocodone-acetaminophen 7.5-325 mg tablet 1 tab PO Q6H PRN (Reason: pain) Qty: 20 0RF Held acetaminophen 500 mg Tablet 1,000 mg PO Q6H PRN (Reason: Pain) Hold Instructions: Resume on 08/31/23. Discontinued ibuprofen 200 mg Capsule 1,000 mg PO Q6H PRN (Reason: Pain) Discharge Orders: Discharge Order (Routine); Ordered 08/26/23 Ordered By: Kevin Celis Referrals: Kenneth Hudson MD [Primary Care Provider] - 4-7 days Kevin Celis DO [Physician] - 2 weeks Discharge Diet: Advance as tolerated Discharge Activity: Limit activity as instructed Patient Instructions: Opioid Safety Activity Restrictions/Additional Instructions: No lifting, pushing or pulling over 15 pounds for 6 weeks. Do not soak incisions underwater for 2 weeks. Shower daily. Let the glue fall off on its own. Discharge Attestations Time Spent in Discharge Care*: less than 30 min Quality Metrics Clinical Quality Measures [ No reported AMI, CVA or VTE this stay] Coding Level of Care Code Acute Code for Chg Fwd Diagnoses Umbilical hernia K42.9 Partial small bowel obstruction K56.600
[2023-08-26] MEDS: HYDROcodone-acetaminophen 7.5-325 mg Tablet 1 TAB PO (15:53)
== END 2023-08-26 16:05 | disposition home or self-care (01) | DRG 355 ==
LOC: ER 09:31 → MEDSURG 11:46
PROVIDERS: Internal Medicine; Admitting Provider Surgery; Emergency Provider Family Medicine; PCP Family Medicine; Visit Provider Internal Medicine
PROC: 0WUF4JZ Supplement Abdominal Wall with Synthetic Substitute, Percutaneous Endoscopic Approach (ICD-10-PCS; principal; 2023-08-25 13:00)
DX: K42.0 Umbilical hernia with obstruction, without gangrene (principal); E11.9 Type 2 diabetes mellitus without complications; I10 Essential (primary) hypertension
CPT/HCPCS: 36415; 36416; 71045; 74018; 74176; 80053; 81003; 82962; 83036; 83690; 84443; 85025; 88302; 96361; 96372; 96374; 96375; 96376; 99285; C1781; J1170; J1815; J2250; J2270; J2405; J2543; J2704; J3010; J3490; J7030

== ENCOUNTER → 2024-01-26 12:30 | Outpatient (BNVA) | payer BC, SELFPAY | PROVIDERS: PCP Family Medicine; Visit Provider Family Medicine | DX: E11.9 Type 2 diabetes mellitus without complications (principal) | CPT/HCPCS: 82962 ==

== ENCOUNTER 2024-05-03 22:48 | Emergency (ER) | payer BC, SELFPAY ==
[2024-05-03 23:03] VITALS: BP 130/82; PULSE 90; RESP 18; TEMP 36.9; O2SAT 95
--- NOTE | 2024-05-03 23:30 | XRR_ITS ---
PROCEDURE INFORMATION: Exam: XR Chest Exam date and time: 05/03/2024 11:32 PM Age: 38 years old Clinical indication: Patient HX: Cough; Abdominal pain; SOB TECHNIQUE: Imaging protocol: Radiologic exam of the chest. Views: 1 view. COMPARISON: CR XR chest 1V portable [id number] 08/24/2023 10:30 AM FINDINGS: Lungs: Patchy left lung ground-glass airspace infiltrate concerning for bronchopneumonia. Pleural spaces: Unremarkable. No pleural effusion. No pneumothorax. Heart/Mediastinum: Unremarkable. No cardiomegaly. Bones/joints: Unremarkable. XR/XR chest 1V portable [id number] IMPRESSION: Patchy left lung ground-glass airspace infiltrate concerning for bronchopneumonia.
--- NOTE | 2024-05-03 23:30 | CTR_ITS ---
PROCEDURE INFORMATION: Exam: CT Abdomen And Pelvis With Contrast Exam date and time: 05/03/2024 11:36 PM Age: 38 years old Clinical indication: Abdominal pain; Localized; Prior surgery; Surgery date: 6+ months; Surgery type: Umbilical hernia repair; Patient HX: C/O lower abd pain. History of umbilical incarcerated hernia. TECHNIQUE: Imaging protocol: Computed tomography of the abdomen and pelvis with contrast. Radiation optimization: All CT scans at this facility use at least one of these dose optimization techniques: automated exposure control; mA and/or kV adjustment per patient size (includes targeted exams where dose is matched to clinical indication); or iterative reconstruction. Contrast material: OMNI 350; Contrast volume: 100 ml; Contrast route: INTRAVENOUS (IV); COMPARISON: CT abdomen pelvis wo con [id number] 08/24/2023 8:21 AM RADIATION DOSE METRICS: Total DLP (mGy-cm): 636.83 FINDINGS: Lungs: Right lower lobe and lingular atelectasis versus infiltrate. Liver: Hepatic steatosis. Liver is somewhat enlarged. Gallbladder and biliary ducts: Normal. No calcified stones. No ductal dilation. Pancreas: Normal. No ductal dilation. Spleen: Normal. No splenomegaly. Adrenal glands: Normal. No mass. Kidneys and ureters: Right kidney cyst, negative for follow-up advised. Right kidney nonobstructing calyceal stone. Stomach and bowel: Prominent fluid in small bowel without dilation may reflect an enteritis. Appendix: No evidence of appendicitis. Intraperitoneal space: Unremarkable. No free air. No significant fluid collection. Vasculature: Unremarkable. No abdominal aortic aneurysm. Lymph nodes: Unremarkable. No enlarged lymph nodes. Urinary bladder: Unremarkable as visualized. Reproductive: Prostate gland enlarged, please correlate clinically. Bones/joints: Unremarkable. No acute fracture. Soft tissues: Unremarkable. CT/CT abdomen pelvis w con* [id number] IMPRESSION: 1. Prominent fluid in small bowel without dilation may reflect an enteritis. 2. Prostate gland enlarged, please correlate clinically. 3. Right lower lobe and lingular atelectasis versus infiltrate. 4. Hepatic steatosis. 5. Liver is somewhat enlarged. 6. Right kidney cyst, negative for follow-up advised. 7. Right kidney nonobstructing calyceal stone.
--- NOTE | 2024-05-03 23:31 | ED_ITS ---
HPI - Abdominal Pain 2 General: Chief Complaint: Abdominal Pain Stated Complaint: post surgury left low abd pain tingling L calf Time Seen by Provider: 05/03/24 23:17 Source: patient Mode of arrival: ambulatory Limitations: no limitations History of Present Illness: Patient is a 38-year-old male presenting to the emergency department complaining of chronic lower abdominal pain since August. States he had a hernia repair as well as surgery for a bowel obstruction, states he has had chronic pain since. He says he has been putting off getting it checked out, has had it looked at 1 time by his primary care provider and was told it was related to his diabetes. He states that it is the worst it has been today, he also has been having a productive cough that has been making his stomach pain worse every time he strains. Decreased appetite, though he is denying any nausea or vomiting, diarrhea or constipation, urinary symptoms, fever/chills, or other symptoms at this time. Still has his appendix and gallbladder. MD elicited complaint: abdominal pain Onset (ago): month(s) Pain Consistency: intermittent Location: RLQ and LLQ Severity: moderate Exacerbating factors: nothing Relieving factors: nothing Associated Symptoms: Denies bloating, change in stool character, chills, constipation, diarrhea, dysuria, fever(s), hematochezia, nausea and vomiting Related Data Home Medications Medication Instructions Recorded Confirmed acetaminophen 500 mg tablet 1,000 mg PO Q6H PRN Pain 08/24/23 02/22/24 Previous Rx's Medication Instructions Recorded docusate sodium 100 mg capsule 100 mg PO BID #14 caps 08/26/23 (Colace) amoxicillin 875 mg-potassium 1 tab PO BID 10 days #20 tabs 05/04/24 clavulanate 125 mg tablet ondansetron HCl 4 mg tablet 4 mg PO Q8H PRN nausea and 05/04/24 vomiting #14 tabs prednisone 20 mg tablet 60 mg (3 x 20 mg) PO ONCE 5 days 05/04/24 #15 tabs Allergies Allergy/AdvReac Type Severity Reaction Status Date / Time No Known Allergies Allergy Verified 05/03/24 23:12 Review of Systems 2 General: Reports: 10 or more systems reviewed and unremarkable except in HPI and below Const: Denies: fever(s), chills, change in appetite, change in weight or diaphoresis ENMT: Denies: throat pain or hoarseness Card: Denies: chest pain, palpitations or lightheadedness Resp: Reports: productive cough; Denies: dyspnea or wheezing GI: Reports: abdominal pain; Denies: nausea, vomiting, diarrhea, constipation, bloating, change in stool character or hematochezia : Denies: flank pain, difficulty urinating, dysuria, urinary frequency or urinary urgency Musc: Denies: neck pain or back pain Skin/Breast: Denies: rash or new lesions Neuro: Denies: headache(s) or dizziness PFSH ED 2 PFSH: Medical History Umbilical hernia Hypertension Diabetes Surgical History History of umbilical hernia repair With adhesiolysis due to small bowel obstruction Family History Denies family history of Anesthesia complication Bleeding disorder Social History Smoking and tobacco/nicotine status: never used tobacco/nicotine Alcohol intake: current Alcohol intake frequency: holidays/special occasions only Alcohol type: beer Substance/Drug Use: never Physical Exam 2 Const: COMMON NORMALS: no acute distress, average body habitus, patient oriented x3, no limitations, healthy appearing, alert and well nourished G ENERAL APPEARANCE: cooperative and comfortable ORIENTATION/CONSCIOUSNESS: Yes awake HENMT: COMMON NORMALS: normocephalic, atraumatic, hearing grossly normal bilaterally, external ears normal, Normal external nose present, Normal nasal mucous membranes and turbinates present and moist oral mucous membranes HEAD & SCALP: normocephalic and atraumatic NOSE: Normal external nose present and Normal nasal mucous membranes and turbinates present EXTERNAL EAR: Yes external ears normal Eye: COMMON NORMALS: Equal, round and reactive pupils present, EOMs intact bilaterally, conjunctivae normal and normal visual falcon by confrontation C ONJUNCTIVA: Yes conjunctivae normal PUPIL: Yes Equal, round and reactive pupils present Neck/C-Spine: COMMON NORMALS: full ROM, supple, no meningeal signs and no JVD Resp: COMMON NORMALS: normal respiratory effort, No retractions, No use of accessory muscles and clear to auscultation bilaterally EFFORT & INSPECTION: Yes Actively coughing productive AUSCULTATION: clear to auscultation bilaterally, no crackles, no rales, no rhonchi and no wheezes Cardio: COMMON NORMALS: no JVD, regular rate, regular rhythm, S1 normal heart sound present, S2 normal heart sound present, No gallops present (Cardio), No clicks present (Cardio), No murmurs present (Cardio), No rub (Cardio) and Peripheral pulses 2+ throughout RATE: regular rate RHYTHM: regular rhythm HEART SOUNDS: S1 normal heart sound present and S2 normal heart sound present PERIPHERAL PULSES: Peripheral pulses 2+ throughout GI: COMMON NORMALS: Normal to inspection, nondistended, normoactive bowel sounds present, Soft to palpation, No hepatosplenomegaly present and no masses AUSCULTATION: Yes normoactive bowel sounds PALPATION: Yes Soft to palpation, Yes Tenderness to palpation present (GI) (Diffuse tenderness to palpation), No Guarding due to palpation present (GI), No Rigid due to palpation and Yes No hepatosplenomegaly present RECTAL EXAM: Yes deferred : COMMON NORMALS: Yes no CVA tenderness BLADDER/KIDNEY EXAM: Yes no CVA tenderness Back/Pelvis: COMMON NORMALS: no CVA tenderness Extremity: COMMON NORMALS: normal to inspection and full ROM Neuro: COMMON NORMALS: patient oriented x3, moves all extremities, no focal motor deficits and no sensory deficits noted SENSORIUM/ORIENTATION: Yes alert MENINGEAL SIGNS: Yes no meningeal signs Psych: COMMON NORMALS: mental status grossly normal, cooperative and speech normal SPEECH: Yes normal speech Skin: COMMON NORMALS: no rashes or lesions noted GENERAL SKIN EXAM: no rashes or lesions noted Course 2 Vital Signs: Vital signs: Vital Signs Temperature 98.5 F 05/03/24 23:03 Pulse Rate 78 05/04/24 00:42 Respiratory Rate 19 H 05/04/24 00:42 Blood Pressure 114/59 05/04/24 00:42 Pulse Oximetry 92 05/04/24 00:42 Oxygen Delivery Me thod Room Air 05/04/24 00:42 MDM - Abdominal Pain Medical Decision Making Patient presented with chronic abdominal pain, has been putting off he states as he had hernia surgery earlier this year. Also reported a cough and stating that this made his abdominal pain worse. Clinically it sounds like straining of the abdominal muscles is causing worsening of his pain during cough, though his CT did show signs of enteritis. However there are also signs of lower lobe pneumonia, we will treat with antibiotics and steroids. Antibiotics to cover for potentially both the enteritis if it is bacterial, and the pneumonia. Vitals have been stable, return precautions given. Discussed this case with Dr. Sullivan. Lab Data 05/03/24 23:21 05/03/24 23:21 Labs/Radiology: Radiology Impressions Abdomen/Pelvis CT 05/03/24 23:30 IMPRESSION: 1. Prominent fluid in small bowel without dilation may reflect an enteritis. 2. Prostate gland enlarged, please correlate clinically. 3. Right lower lobe and lingular atelectasis versus infiltrate. 4. Hepatic steatosis. 5. Liver is somewhat enlarged. 6. Right kidney cyst, negative for follow-up advised. 7. Right kidney nonobstructing calyceal stone. Chest X-Ray 05/03/24 23:30 IMPRESSION: Patchy left lung ground-glass airspace infiltrate concerning for bronchopneumonia. Laboratory Results WBC 10.96 10^3/uL (3.29-11.43) 05/03/24 23:21 RBC 4.76 10^6/uL (3.85-5.65) 05/03/24 23:21 Hgb 14.00 g/dL (11.27-16.99) 05/03/24 23:21 Hct 40.7 % (37-53) 05/03/24 23:21 MCV 85.5 fl (82-101) 05/03/24 23:21 MCH 29.4 pg (27-33) 05/03/24 23:21 MCHC 34.4 g/dL (30-55) 05/03/24 23:21 RDW 12.2 % (12.1-15.1) 05/03/24 23:21 Plt Count 263 10^3/cmm (157-399) 05/03/24 23:21 MPV 9.7 fL (7.4-10.4) 05/03/24 23:21 Neut % (Auto) 69.3 % 05/03/24 23:21 Lymph % (Auto) 16.8 % 05/03/24 23:21 [place] % (Auto) 12.0 % 05/03/24 23:21 Eos % (Auto) 1.1 % 05/03/24 23:21 Baso % (Auto) 0.4 % 05/03/24 23:21 Neut # (Auto) 7.61 10^3/uL (1.8-7.7) 05/03/24 23:21 Lymph # (Auto) 1.8 10^3/uL (0.8-4.8) 05/03/24 23:21 [place] # (Auto) 1.3 10^3/uL (0.2-0.9) H 05/03/24 23:21 Eos # (Auto) 0.1 10^3/uL (0.0-0.8) 05/03/24 23:21 Baso # (Auto) 0.0 10^3/uL (0.0-0.1) 05/03/24 23:21 Nucleated RBC % (auto) 0 % 05/03/24 23:21 Nucleated RBCs # 0.0 /100WBC 05/03/24 23:21 Sodium 134 mmol/L (136-145) L 05/03/24 23:21 Potassium 3.2 mmol/L (3.5-5.1) L 05/03/24 23:21 Chloride 99 mmol/L (98-107) 05/03/24 23:21 Carbon Dioxide 21 mmol/L (22-29) L 05/03/24 23:21 Anion Gap 17.2 (5-19) 05/03/24 23:21 BUN 12 mg/dL (6-20) 05/03/24 23:21 Creatinine 0.7 mg/dL (0.7-1.2) 05/03/24 23:21 GFR Calculation 126.2 mL/min (90-130) 05/03/24 23:21 Glucose 196 mg/dL (65-115) H 05/03/24 23:21 Calculated Osmolality 283 mOsm/kg (285-295) L 05/03/24 23:21 Calcium 8.7 mg/dL (8.5-10.5) 05/03/24 23:21 Total Bilirubin 0.6 mg/dL (0.15-1.2) 05/03/24 23:21 AST 18 U/L (0-40) 05/03/24 23:21 ALT 16 U/L (0-41) 05/03/24 23:21 Alkaline Phosphatase 94 U/L (40-130) 05/03/24 23:21 Total Protein 7.4 g/dL (6.6-8.7) 05/03/24 23:21 Albumin 4.0 g/dL (3.5-5.2) 05/03/24 23:21 Globulin 3.4 g/dL (1.3-4.6) 05/03/24 23:21 Lipase 21 U/L (13-60) 05/03/24 23:21 Coronavirus (PCR) Negative (Negative) 05/03/24 23:36 Influenza A (PCR) Negative (Negative) 05/03/24 23:36 Influenza Type B (PCR) Negative (Negative) 05/03/24 23:36 RSV (PCR) Negative (Negative) 05/03/24 23:36 All radiology interpretation(s) finalized by discharge Discharge Plan Discharge Patient Disposition: Home Clinical Impression: Bronchopneumonia, Enteritis Condition: Stable Prescriptions: New prednisone 20 mg tablet 60 mg PO ONCE 5 Days Qty: 15 0RF amoxicillin-pot clavulanate 875-125 mg tablet 1 tab PO BID 10 Days Qty: 20 0RF ondansetron HCl 4 mg tablet 4 mg PO Q8H PRN (Reason: nausea and vomiting) Qty: 14 0RF No Action acetaminophen 500 mg Tablet 1,000 mg PO Q6H PRN (Reason: Pain) Hold Instructions: Resume on 08/31/23. Colace 100 mg capsule 100 mg PO BID Qty: 14 0RF Discharge Orders: Discharge ED (Routine); Ordered 05/04/24 Ordered By: Kali Salmeron Referrals: Kenneth Hudson MD [Primary Care Provider] - Patient Instructions: Pneumonia (ED), Enteritis (ED) Activity Restrictions/Additional Instructions: Antibiotics as prescribed. Steroids. Drink plenty fluids. Follow-up with primary care as discussed. Return with any new or worsening. Coding Level of Care Code ED [employer] for Fatmata Nur
[2024-05-03] MEDS: iohexol 350 mg/mL 500 mL Btl (per mL) IV (23:39)
[2024-05-03 23:40] LABS: Basophils % 0.4 %; Eosinophils # 0.1 10^3/uL (0.0-0.8); Eosinophils % 1.1 %; Hematocrit 40.7 % (37-53); Lymphocytes # 1.8 10^3/uL (0.8-4.8); Lymphocytes % 16.8 %; Mean Corpuscular HGB Conc 34.4 g/dL (30-55); Mean Corpuscular Hemoglobin 29.4 pg (27-33); Mean Corpuscular Volume 85.5 fl (82-101); Mean Platelet Volume 9.7 fL (7.4-10.4); Monocytes # 1.3 10^3/uL (0.2-0.9); Neutrophils # 7.61 10^3/uL (1.8-7.7); Neutrophils % 69.3 %; Nucleated Red Blood Cells % 0 %; Platelet Count 263 10^3/cmm (157-399); Red Blood Count 4.76 10^6/uL (3.85-5.65); Red Cell Distribution Width 12.2 % (12.1-15.1); White Blood Count 10.96 10^3/uL (3.29-11.43)
[2024-05-03 23:59] LABS: Alanine Aminotransferase 16 U/L (0-41); Alkaline Phosphatase 94 U/L (40-130); Anion Gap 17.2 (5-19); Aspartate Amino Transferase 18 U/L (0-40); Blood Urea Nitrogen 12 mg/dL (6-20); Calcium 8.7 mg/dL (8.5-10.5); Carbon Dioxide 21 mmol/L (22-29); Chloride 99 mmol/L (98-107); Creatinine Clr Calc Pharmacy 146.7723; Globulin 3.4 g/dL (1.3-4.6); Glomerular Filtration Rate 126.2 mL/min (90-130); Glucose 196 mg/dL (65-115); Lipase 21 U/L (13-60); Osmolality Calculated 283 mOsm/kg (285-295); Potassium 3.2 mmol/L (3.5-5.1); Sodium 134 mmol/L (136-145); Total Bilirubin 0.6 mg/dL (0.15-1.2); Total Protein 7.4 g/dL (6.6-8.7)
[2024-05-04 00:27] LABS: Covid PCR NEGATIVE (Negative); Influenza A NEGATIVE (Negative); Influenza B NEGATIVE (Negative); Respiratory Syncytial Virus Ce NEGATIVE (Negative)
[2024-05-04 00:42] VITALS: BP 114/59; PULSE 78; RESP 19; O2SAT 92
[2024-05-04] MEDS: amoxicillin-clav 875-125 mg Tablet 1 TAB PO (01:00)
[2024-05-04] MEDS: dexamethasone 10 mg/mL INJ IVP (01:00)
== END 2024-05-04 01:02 | disposition home or self-care (01) ==
PROVIDERS: Emergency Provider Physician Assistant; PCP Family Medicine
DX: J18.0 Bronchopneumonia, unspecified organism (principal); K52.9 Noninfective gastroenteritis and colitis, unspecified; E11.9 Type 2 diabetes mellitus without complications; Z98.890 Other specified postprocedural states; Z11.52 Encounter for screening for COVID-19
CPT/HCPCS: 0241U; 71045; 74177; 80053; 83690; 85025; 96374; 99285; J1100

== ENCOUNTER 2024-08-06 18:43 | Emergency (ER) | payer BC, SELFPAY ==
[2024-08-06 18:59] VITALS: BP 137/91; PULSE 89; RESP 17; TEMP 37.5; O2SAT 96; BMI 26.6
--- NOTE | 2024-08-06 19:11 | CTR_ITS ---
PROCEDURE INFORMATION: Exam: CT Neck With Contrast Exam date and time: 08/06/2024 7:52 PM Age: 38 years old Clinical indication: Condition or disease; Other: Strep+ today; Additional info: Strep +, muffled voice TECHNIQUE: Imaging protocol: Computed tomography of the neck with contrast. Radiation optimization: All CT scans at this facility use at least one of these dose optimization techniques: automated exposure control; mA and/or kV adjustment per patient size (includes targeted exams where dose is matched to clinical indication); or iterative reconstruction. Contrast material: OMNIPAQUE 350; Contrast volume: 100 ml; Contrast route: INTRAVENOUS (IV); COMPARISON: CR XR chest 1V portable [id number] 05/03/2024 11:32 PM RADIATION DOSE METRICS: Total DLP (mGy-cm): 322.01 FINDINGS: Salivary glands: Normal. Glands are normal in size. Pharynx: Left peritonsillar 12 mm low-density fluid collection, series 6, image 3 concerning for a peritonsillar abscess. Right peritonsillar 11 mm fluid collection, series 6, image 3 concerning for a peritonsillar abscess. Larynx: Unremarkable. Epiglottis is normal. Thyroid: Normal. No enlarged or calcified nodules. Trachea: Visualized trachea is unremarkable. Lungs: Unremarkable as visualized. Lymph nodes: Scattered prominent lymph nodes throughout the neck measuring up to 11 mm short axis in the left proximal posterior chain, findings are nonspecific. Bones/joints: Unremarkable. No acute fracture. Soft tissues: Unremarkable. No significant soft tissue swelling. CT/CT neck w con* [id number] IMPRESSION: 1. Left peritonsillar 12 mm low-density fluid collection, series 6, image 3 concerning for a peritonsillar abscess. 2. Right peritonsillar 11 mm fluid collection, series 6, image 3 concerning for a peritonsillar abscess. 3. Scattered prominent lymph nodes throughout the neck measuring up to 11 mm short axis in the left proximal posterior chain, findings are nonspecific.
--- NOTE | 2024-08-06 19:13 | W.ED.URI ---
HPI - URI/Sore Throat General: Chief Complaint: Upper Respiratory Infection Stated Complaint: Strep Throat Sent By Urgent Care Time Seen by Provider: 08/06/24 19:05 Source: patient Mode of arrival: ambulatory Limitations: no limitations History of Present Illness: Patient is a 38-year-old male who presents the emergency department due to sore throat for the past day or so. Was seen initially at urgent care, tested positive for strep but there were concerns for airway compromise due to muffled voice and difficulty handling secretions. Patient states he had elevated temperature over there, he is afebrile 99.5 here. States he is having neck pain, painful swallowing. No other symptoms reported at this time. He was given a shot of Decadron and started on Augmentin by urgent care. MD elicited complaint: sore throat Onset (ago): day(s) Consistency: constant and progressively worsening Severity: severe Able to tolerate fluids by mouth: No Exacerbating factors: swallowing Relieving factors: nothing Associated symptoms: Reports fever(s); Deny abdominal pain, chills, chest pain, diarrhea, ear or mastoid pain, headache(s), nausea or vomiting Treatments prior to arrival: other (Decadron at urgent care) Related Data Home Medications Medication Instructions Recorded Confirmed acetaminophen 500 mg tablet 1,000 mg PO Q6H PRN Pain 08/24/23 08/06/24 Previous Rx's Medication Instructions Recorded clindamycin HCl 300 mg capsule 300 mg PO BID 7 days #14 caps 08/06/24 Allergies Allergy/AdvReac Type Severity Reaction Status Date / Time No Known Allergies Allergy Verified 08/06/24 19:03 Review of Systems General: Reports: 10 or more systems reviewed and unremarkable except in HPI and below Const: Reports: fever(s); Denies: chills or fatigue Eyes: Denies: change in vision ENMT: Reports: throat pain, enlarged tonsils, odynophagia and hoarseness; Denies: ear or mastoid pain or nasal discharge Card: Denies: chest pain, palpitations, swelling of feet/ankles or lightheadedness Resp: Denies: dyspnea, productive cough or wheezing GI: Denies: abdominal pain, nausea, vomiting, diarrhea or constipation : Denies: flank pain, difficulty urinating, dysuria or urinary frequency Musc: Reports: neck pain; Denies: back pain or joint pain Skin/Breast: Denies: rash Neuro: Denies: headache(s), numbness in extremities or weakness in extremities PFSH ED PFSH: Medical History Umbilical hernia Hypertension Diabetes Surgical History History of umbilical hernia repair With adhesiolysis due to small bowel obstruction Family History Denies family history of Anesthesia complication Bleeding disorder Social History Smoking and tobacco/nicotine status: never used tobacco/nicotine Alcohol intake: current Alcohol intake frequency: holidays/special occasions only Alcohol type: beer Substance/Drug Use: never Physical Exam Const: COMMON NORMALS: no acute distress, patient oriented x3 and no limitations GENERAL APPEARANCE: cooperative and well developed ORIENTATION/CONSCIOUSNESS: Yes awake, Yes oriented to person, Yes oriented to place and Yes oriented to time OTHER: Muffled voice, no respiratory distress HENMT: COMMON NORMALS: normocephalic, atraumatic and hearing grossly normal bilaterally HEAD & SCALP: normocephalic and atraumatic THROAT: uvula midline and abnormal tonsil bilateral erythema and hypertrophy 3+ Eye: COMMON NORMALS: Equal, round and reactive pupils present, EOMs intact bilaterally and conjunctivae normal CONJUNCTIVA: Yes conjunctivae normal PUPIL: Yes Equal, round and reactive pupils present Neck/C-Spine: COMMON NORMALS: full ROM, supple and no JVD Resp: COMMON NORMALS: normal respiratory effort, No retractions, No use of accessory muscles and clear to auscultation bilaterally AUSCULTATION: clear to auscultation bilaterally Cardio: COMMON NORMALS: no JVD, regular rate, regular rhythm, No clicks present (Cardio), No murmurs present (Cardio) and No rub (Cardio) RATE: regular rate RHYTHM: regular rhythm Extremity: COMMON NORMALS: normal to inspection, full ROM and capillary refill normal Neuro: COMMON NORMALS: patient oriented x3, moves all extremities, no focal motor deficits and no sensory deficits noted SENSORIUM/ORIENTATION: Yes oriented to person, Yes oriented to place and Yes oriented to time Skin: COMMON NORMALS: no rashes or lesions noted GENERAL SKIN EXAM: no rashes or lesions noted Course Vital Signs: Vital signs: Vital Signs Temperature 99.5 F 08/06/24 18:59 Pulse Rate 93 08/06/24 21:07 Respiratory Rate 17 08/06/24 18:59 Blood Pressure 143/84 08/06/24 21:07 Pulse Oximetry 94 08/06/24 21:07 Oxygen Delivery Me thod Room Air 08/06/24 20:22 MDM - URI/Sore Throat Medical Decision Making Patient referred by urgent care for concerns of respiratory compromise following strep diagnosis. Here on exam patient's tonsils were swollen bilaterally, there was muffled voice on exam and he was complaining of trouble with handling secretions as well as pain with swallowing. Labs show slightly elevated white count, elevation with CRP and ESR. CT of neck showing bilateral peritonsillar abscess, albeit small. I spoke with ENT, Dr. Junior, who states he will see this patient urgently in the office recommends clindamycin as well as steroid of which patient already received at urgent care. Patient was rechecked, still not complaining of any respiratory distress and his SpO2 has remained normal throughout ED stay. Informed him to immediately return to the ED if he feels that his throat is closing or he has any significant respiratory distress. Urgently will follow-up with the ENT as we discussed, and all other questions and concerns addressed. Discussed case briefly with Dr. Le in the ED. Lab Data 08/06/24 19:30 08/06/24 19:[address] 08/06/24 19:11 IMPRESSION: 1. Left peritonsillar 12 mm low-density fluid collection, series 6, image 3 concerning for a peritonsillar abscess. 2. Right peritonsillar 11 mm fluid collection, series 6, image 3 concerning for a peritonsillar abscess. 3. Scattered prominent lymph nodes throughout the neck measuring up to 11 mm short axis in the left proximal posterior chain, findings are nonspecific. Laboratory Results WBC 15.92 10^3/uL (3.29-11.43) H 08/06/24 19:30 RBC 5.12 10^6/uL (3.85-5.65) 08/06/24 19:30 Hgb 14.80 g/dL (11.27-16.99) 08/06/24 19:30 Hct 44.3 % (37-53) 08/06/24 19:30 MCV 86.5 fl (82-101) 08/06/24 19:30 MCH 28.9 pg (27-33) 08/06/24 19:30 MCHC 33.4 g/dL (30-55) 08/06/24 19:30 RDW 12.6 % (12.1-15.1) 08/06/24 19:30 Plt Count 295 10^3/cmm (157-399) 08/06/24 19:30 MPV 9.6 fL (7.4-10.4) 08/06/24 19:30 Neut % (Auto) 76.8 % 08/06/24 19:30 Lymph % (Auto) 13.6 % 08/06/24 19:30 [place] % (Auto) 8.1 % 08/06/24 19:30 Eos % (Auto) 0.6 % 08/06/24 19: Baso % (Auto) 0.4 % 08/06/24 19:30 Neut # (Auto) 12.22 10^3/uL (1.8-7.7) H 08/06/24 19:30 Lymph # (Auto) 2.2 10^3/uL (0.8-4.8) 08/06/24 19:30 [place] # (Auto) 1.3 10^3/uL (0.2-0.9) H 08/06/24 19:30 Eos # (Auto) 0.1 10^3/uL (0.0-0.8) 08/06/24 19: Baso # (Auto) 0.1 10^3/uL (0.0-0.1) 08/06/24 19: Nucleated RBC % (auto) 0 % 08/06/24 19: Nucleated RBCs # 0.0 /100WBC 08/06/24 19:30 ESR 18 mm/hr (0-10) H 08/06/24 19:30 Sodium 137 mmol/L (136-145) 08/06/24 19:30 Potassium 4.0 mmol/L (3.5-5.1) 08/06/24 19:30 Chloride 98 mmol/L (98-107) 08/06/24 19:30 Carbon Dioxide 25 mmol/L (22-29) 08/06/24 19:30 Anion Gap 18.0 (5-19) 08/06/24 19:30 BUN 8 mg/dL (6-20) 08/06/24 19:30 Creatinine 0.7 mg/dL (0.7-1.2) 08/06/24 19:30 GFR Calculation 126.2 mL/min (90-130) 08/06/24 19:30 Glucose 202 mg/dL (65-115) H 08/06/24 19:30 Calculated Osmolality 288 mOsm/kg (285-295) 08/06/24 19:30 Calcium 9.6 mg/dL (8.5-10.5) 08/06/24 19:30 Total Bilirubin 0.6 mg/dL (0.15-1.2) 08/06/24 19:30 AST 13 U/L (0-40) 08/06/24 19:30 ALT 18 U/L (0-41) 08/06/24 19:30 Alkaline Phosphatase 118 U/L (40-130) 08/06/24 19:30 C-Reactive Protein 139.8 mg/L (0.0-4.9) H 08/06/24 19:30 Total Protein 7.3 g/dL (6.6-8.7) 08/06/24 19:30 Albumin 4.3 g/dL (3.5-5.2) 08/06/24 19:30 Globulin 3.0 g/dL (1.3-4.6) 08/06/24 19:30 All radiology interpretation(s) finalized by discharge Discharge Plan Discharge Patient Disposition: Home Clinical Impression: Peritoneal abscess, Acute streptococcal pharyngitis Condition: Stable Prescriptions: New clindamycin HCl 300 mg capsule 300 mg PO BID 7 Days Qty: 14 0RF Discontinued amoxicillin-pot clavulanate 875-125 mg tablet 1 tab PO BID 10 Days Qty: 20 0RF No Action acetaminophen 500 mg Tablet 1,000 mg PO Q6H PRN (Reason: Pain) Hold Instructions: Resume on 08/31/23. Discharge Orders: Discharge ED (Routine); Ordered 08/06/24 Ordered By: Kali Salmeron Referrals: Kenneth Hudson MD [Primary Care Provider] - Patient Instructions: Peritonsillar Abscess (ED) Activity Restrictions/Additional Instructions: Please follow-up with ENT tomorrow as discussed. Take clindamycin, stop taking Augmentin. Soft foods, please return if you have any sensation of throat closing or severe shortness of breath. Coding Level of Care Code ED Manager Crisis for Fatmata Nur
[2024-08-06 19:46] LABS: Basophils # 0.1 10^3/uL (0.0-0.1); Basophils % 0.4 %; Eosinophils # 0.1 10^3/uL (0.0-0.8); Eosinophils % 0.6 %; Hematocrit 44.3 % (37-53); Lymphocytes # 2.2 10^3/uL (0.8-4.8); Lymphocytes % 13.6 %; Mean Corpuscular HGB Conc 33.4 g/dL (30-55); Mean Corpuscular Hemoglobin 28.9 pg (27-33); Mean Corpuscular Volume 86.5 fl (82-101); Mean Platelet Volume 9.6 fL (7.4-10.4); Monocytes # 1.3 10^3/uL (0.2-0.9); Monocytes % 8.1 %; Neutrophils # 12.22 10^3/uL (1.8-7.7); Neutrophils % 76.8 %; Nucleated Red Blood Cells % 0 %; Platelet Count 295 10^3/cmm (157-399); Red Blood Count 5.12 10^6/uL (3.85-5.65); Red Cell Distribution Width 12.6 % (12.1-15.1); White Blood Count 15.92 10^3/uL (3.29-11.43)
[2024-08-06] MEDS: iohexol 350 mg/mL 500 mL Btl (per mL) IV (19:54)
[2024-08-06 20:03] LABS: Alanine Aminotransferase 18 U/L (0-41); Albumin Level 4.3 g/dL (3.5-5.2); Alkaline Phosphatase 118 U/L (40-130); Aspartate Amino Transferase 13 U/L (0-40); Blood Urea Nitrogen 8 mg/dL (6-20); C Reactive Protein 139.8 mg/L (0.0-4.9); Calcium 9.6 mg/dL (8.5-10.5); Carbon Dioxide 25 mmol/L (22-29); Chloride 98 mmol/L (98-107); Creatinine Clr Calc Pharmacy 151.9452; Glomerular Filtration Rate 126.2 mL/min (90-130); Glucose 202 mg/dL (65-115); Osmolality Calculated 288 mOsm/kg (285-295); Sodium 137 mmol/L (136-145); Total Bilirubin 0.6 mg/dL (0.15-1.2); Total Protein 7.3 g/dL (6.6-8.7)
[2024-08-06] MEDS: cefTRIAXone 1,000 mg SDV 1000 MG IVP (20:13)
[2024-08-06 20:19] LABS: Erythrocyte Sedimentation Rate 18 mm/hr (0-10)
[2024-08-06 20:22] VITALS: BP 126/76; PULSE 89; O2SAT 95
[2024-08-06] MEDS: clindamycin 150 mg Capsule 300 MG PO (20:56)
[2024-08-06 21:07] VITALS: BP 143/84; PULSE 93; O2SAT 94
--- NOTE | 2024-08-08 23:59 | DCPLANNER ---
Referral sent to Dr Junior ENT
== END 2024-08-06 21:05 | disposition home or self-care (01) ==
PROVIDERS: Emergency Provider Physician Assistant; PCP Family Medicine
DX: K65.1 Peritoneal abscess (principal); J02.0 Streptococcal pharyngitis; E11.9 Type 2 diabetes mellitus without complications; I10 Essential (primary) hypertension
CPT/HCPCS: 36415; 70491; 80053; 85025; 85651; 86140; 87040; 87880; 96374; 99285; J0696

== ENCOUNTER 2025-02-27 08:23 | Emergency (ER) | payer BC, SELFPAY ==
[2025-02-27 08:51] VITALS: BP 118/76; PULSE 90; RESP 16; TEMP 37.6; O2SAT 97; BMI 28.7
[2025-02-27 09:15] LABS: Hematocrit 45.5 % (37-53); Hemoglobin 15.30 g/dL (11.27-16.99); Mean Corpuscular HGB Conc 33.6 g/dL (30-55); Mean Corpuscular Hemoglobin 29.1 pg (27-33); Mean Corpuscular Volume 86.5 fl (82-101); Nucleated Red Blood Cells % 0 %; Platelet Count 209 10^3/cmm (157-399); Red Blood Count 5.26 10^6/uL (3.85-5.65); White Blood Count 9.62 10^3/uL (3.29-11.43)
[2025-02-27 09:35] LABS: Alanine Aminotransferase 17 U/L (0-41); Albumin Level 4.0 g/dL (3.5-5.2); Alkaline Phosphatase 93 U/L (40-130); Anion Gap 18.0 (5-19); Aspartate Amino Transferase 15 U/L (0-40); Blood Urea Nitrogen 15 mg/dL (6-20); Calcium 8.6 mg/dL (8.5-10.5); Carbon Dioxide 18 mmol/L (22-29); Chloride 98 mmol/L (98-107); Creatinine Clr Calc Pharmacy 132.0919; Globulin 3.1 g/dL (1.3-4.6); Glucose 432 mg/dL (65-115); Osmolality Calculated 289 mOsm/kg (285-295); Potassium 4.0 mmol/L (3.5-5.1); Sodium 130 mmol/L (136-145); Total Protein 7.1 g/dL (6.6-8.7)
--- NOTE | 2025-02-27 09:51 | CT_ITS ---
WS: [id number] CT ABDOMEN AND PELVIS WITH CONTRAST HISTORY: Left-sided abdominal pain, nausea, vomiting and diarrhea. TECHNIQUE: Imaging performed of the abdomen and pelvis with IV contrast. Single phase imaging of the abdomen. Coronal and sagittal reformats are submitted. All CT scans at [facility] use at least one of these dose optimization techniques: automated exposure control; mA and/or kV adjustment per patient size (includes targeted exams where dose is matched to clinical indication); or iterative reconstruction. IV CONTRAST: Omnipaque 350; 100 mL IV. Oral contrast: No DLP: 610.99 mGy.cm COMPARISON: 05/03/2024 Lower thorax: Lung bases are clear. Heart is normal size. No hiatal hernia. Liver/biliary system: Normal size with no intrahepatic dilatation. Gallbladder: Normal. No gallstones or wall thickening. No pericholecystic fluid. Pancreas: Normal size pancreas and pancreatic duct. No adjacent inflammation. Spleen: Normal size spleen. No mass or infarct. Adrenal glands: Normal. Right kidney: Normal size kidney with no obstruction. 2 mm calcification upper pole. There is a subtle area of decreased enhancement measuring 9.6 mm in the superior pole RIGHT kidney which cannot be classified further. 5 mm cyst mid kidney. Left kidney: Normal. Aorta: Normal. Lymphadenopathy: None. Free fluid: None. GI tract: Fluid-filled and hyperemic small bowel loops extending over a significant length of the small bowel. Hyperemia involving the jejunum and ileum and extending to the ileocecal valve. There is increased fluid although no obstruction. New finding since 05/03/2024. The appendix is normal. Increased fluid also present in the colon. There are a few areas of narrowing in the descending colon and towards the splenic flexure which could be areas of peristalsis. Abdominal wall: Unremarkable abdominal wall. No hernia. Pelvis: No free fluid or adenopathy within the pelvis. Bones: Unremarkable. CT/CT abdomen pelvis w con* [id number] IMPRESSION: 1. Increased fluid in the jejunum and ileum with hyperemia of the mucosa. This can be seen with both inflammatory or infectious etiologies. 2. Increased fluid in the colon but no obstruction. 3. No free fluid. 4. Few areas of narrowing involving the splenic flexure and descending colon. This may be due to peristalsis. This can be further evaluated by colonoscopy or follow-up CT abdomen and pelvis after acute episode has resolved. 5. Indeterminate lesion in the RIGHT kidney measuring 9.6 cm in the superior p ole. This is not a simple cyst. May be a complex cyst. Consider follow-up MRI k idneys with and without contrast.
--- NOTE | 2025-02-27 09:52 | ED_ITS ---
HPI - Abdominal Pain 2 General: Chief Complaint: Abdominal Pain Stated Complaint: Middle ABD Pain N/D Time Seen by Provider: 02/27/25 08:35 History of Present Illness: 39-year-old male presents emergency room complaining of left lower quadrant abdominal pain that began about 48 days ago it has been intermittent but overnight it has gotten much more intense. Patient denies history of hematemesis or coffee-ground emesis. He previously had a bowel resection after a bowel obstruction prior to that he has not had any surgeries. Denies any dysuria urgency or frequency or history of kidney stones Associated Symptoms: Denies chills, dysuria and fever(s) Related Data Home Medications ?Medication ?Instructions ?Recorded ?Confirmed acetaminophen 500 mg tablet 1,000 mg PO Q6H PRN Pain 0 08/24/23 08/06/24 Held on 08/26/23. Instructions: Resume on 08/31/23. Previous Rx's ?Medication ?Instructions ?Recorded promethazine 25 mg tablet 25 mg PO Q6H PRN nausea and 02/27/25 vomiting #20 tabs Allergies Allergy/AdvReac Type Severity Reaction Status Date / Time No Known Allergies Allergy Verified 08/06/24 19:03 Review of Systems 2 Const: Denies: fever(s) or chills Card: Denies: chest pain Resp: Denies: dyspnea GI: Denies: abdominal pain : Denies: dysuria, urinary frequency or urinary urgency Musc: Denies: neck pain or back pain Skin/Breast: Denies: rash PFSH ED 2 PFSH: Medical History Umbilical hernia Hypertension Diabetes Surgical History History of umbilical hernia repair With adhesiolysis due to small bowel obstruction Family History Denies family history of Anesthesia complication Bleeding disorder Social History Smoking and tobacco/nicotine status: never used tobacco/nicotine Alcohol intake: current Alcohol intake frequency: holidays/special occasions only Alcohol type: beer Substance/Drug Use: never Physical Exam 2 Const: GENERAL APPEARANCE: cooperative ORIENTATION/CONSCIOUSNESS: Yes awake, Yes oriented to person, Yes oriented to place and Yes oriented to time HENMT: COMMON NORMALS: normocephalic, atraumatic and hearing grossly normal bilaterally HEAD & SCALP: normocephalic and atraumatic Resp: COMMON NORMALS: normal respiratory effort, No retractions, No use of accessory muscles and clear to auscultation bilaterally AUSCULTATION: clear to auscultation bilaterally Cardio: COMMON NORMALS: regular rate, regular rhythm and No murmurs present (Cardio) RATE: regular rate RHYTHM: regular rhythm GI: COMMON NORMALS: Soft to palpation and No hepatosplenomegaly present A USCULTATION: Yes normoactive bowel sounds PALPATION: Yes Soft to palpation, No Tenderness to palpation present (GI), No Guarding due to palpation present (GI) and Yes No hepatosplenomegaly present Extremity: COMMON NORMALS: normal to inspection, capillary refill normal, no clubbing, cyanosis or edema, no calf tenderness and no pedal edema Neuro: SENSORIUM/ORIENTATION: Yes oriented to person, Yes oriented to place and Yes oriented to time Skin: COMMON NORMALS: no rashes or lesions noted GENERAL SKIN EXAM: no rashes or lesions noted Course 2 Vital Signs: Vital signs: Vital Signs Temperature 99.6 F 02/27/25 08:51 Pulse Rate 78 02/27/25 12:05 Respiratory Rate 16 02/27/25 08:51 Blood Pressure 97/58 02/27/25 12:05 Pulse Oximetry 95 02/27/25 12:05 Oxygen Delivery Me thod Room Air 02/27/25 12:05 MDM - Abdominal Pain Medical Decision Making CT does not show any signs of obstruction does have signs of enteritis are reviewed with Dr. Dang. Will discharge patient home clear liquid diet antiemetics. Did not prescribe any steroids or antibiotics suspect this is a viral gastroenteritis with sudden onset. He is not having any hematochezia. Medical Records I reviewed the patient's medical records. Lab Data I reviewed the patient's lab results. 02/27/25 09:04 02/27/25 09:04 Labs/Radiology: Radiology Impressions Abdomen/Pelvis CT 02/27/25 09:51 IMPRESSION: 1. Increased fluid in the jejunum and ileum with hyperemia of the mucosa. This can be seen with both inflammatory or infectious etiologies. 2. Increased fluid in the colon but no obstruction. 3. No free fluid. 4. Few areas of narrowing involving the splenic flexure and descending colon. This may be due to peristalsis. This can be further evaluated by colonoscopy or follow-up CT abdomen and pelvis after acute episode has resolved. 5. Indeterminate lesion in the RIGHT kidney measuring 9.6 cm in the superior pole. This is not a simple cyst. May be a complex cyst. Consider follow-up MRI kidneys with and without contrast. Laboratory Results WBC 9.62 10^3/uL (3.29-11.43) 02/27/25 09:04 RBC 5.26 10^6/uL (3.85-5.65) 02/27/25 09:04 Hgb 15.30 g/dL (11.27-16.99) 02/27/25 09:04 Hct 45.5 % (37-53) 02/27/25 09:04 MCV 86.5 fl (82-101) 02/27/25 09:04 MCH 29.1 pg (27-33) 02/27/25 09:04 MCHC 33.6 g/dL (30-55) 02/27/25 09:04 RDW 12.5 % (12.1-15.1) 02/27/25 09:04 Plt Count 209 10^3/cmm (157-399) 02/27/25 09:04 MPV 9.7 fL (7.4-10.4) 02/27/25 09:04 Neut % (Auto) 85.2 % 02/27/25 09:04 Lymph % (Auto) 7.3 % 02/27/25 09:04 Reeves % (Auto) 6.8 % 02/27/25 09:04 Eos % (Auto) 0.1 % 02/27/25 09:04 Baso % (Auto) 0.3 % 02/27/25 09:04 Neut # (Auto) 8.20 10^3/uL (1.8-7.7) H 02/27/25 09:04 Lymph # (Auto) 0.7 10^3/uL (0.8-4.8) L 02/27/25 09:04 Reeves # (Auto) 0.7 10^3/uL (0.2-0.9) 02/27/25 09:04 Eos # (Auto) 0.0 10^3/uL (0.0-0.8) 02/27/25 09:04 Baso # (Auto) 0.0 10^3/uL (0.0-0.1) 02/27/25 09:04 Nucleated RBC % (auto) 0 % 02/27/25 09:04 Nucleated RBCs # 0.0 /100WBC 02/27/25 09:04 Sodium 130 mmol/L (136-145) L 02/27/25 09:04 Potassium 4.0 mmol/L (3.5-5.1) 02/27/25 09:04 Chloride 98 mmol/L (98-107) 02/27/25 09:04 Carbon Dioxide 18 mmol/L (22-29) L 02/27/25 09:04 Anion Gap 18.0 (5-19) 02/27/25 09:04 BUN 15 mg/dL (6-20) 02/27/25 09:04 Creatinine 0.8 mg/dL (0.7-1.2) 02/27/25 09:04 GFR Calculation 107.6 mL/min (90-130) 02/27/25 09:04 Glucose 432 mg/dL (65-115) H 02/27/25 09:04 Calculated Osmolality 289 mOsm/kg (285-295) 02/27/25 09:04 Calcium 8.6 mg/dL (8.5-10.5) 02/27/25 09:04 Total Bilirubin 0.6 mg/dL (0.15-1.2) 02/27/25 09:04 AST 15 U/L (0-40) 02/27/25 09:04 ALT 17 U/L (0-41) 02/27/25 09:04 Alkaline Phosphatase 93 U/L (40-130) 02/27/25 09:04 Total Protein 7.1 g/dL (6.6-8.7) 02/27/25 09:04 Albumin 4.0 g/dL (3.5-5.2) 02/27/25 09:04 Globulin 3.1 g/dL (1.3-4.6) 02/27/25 09:04 Urine Color Yellow (Yellow) 02/27/25 10:34 Urine Appearance Clear (CLEAR) 02/27/25 10:34 Urine pH 5.0 (5-7) 02/27/25 10:34 Ur Specific [place] 1.046 (1.005-1.030) H 02/27/25 10:34 Urine Protein Negative (Negative) 02/27/25 10:34 Urine Glucose (UA) 2+ (Normal) H 02/27/25 10:34 Urine Ketones Negative (Negative) 02/27/25 10:34 Urine Blood Negative (Negative) 02/27/25 10:34 Urine Nitrate Negative (Negative) 02/27/25 10:34 Urine Bilirubin Negative (Negative) 02/27/25 10:34 Urine Urobilinogen 0.2 mg/dL (Negative) 02/27/25 10:34 Ur Leukocyte Esterase Negative (Negative) 02/27/25 10:34 Urine RBC 0-2 /hpf (0-2) 02/27/25 10:34 Urine WBC 0-5 /hpf (0-5) 02/27/25 10:34 Ur Squamous Epith Cells 0-5 /hpf (0-5) 02/27/25 10:34 Amorphous Sediment Not Reportable 02/27/25 10:34 Urine Bacteria None seen /hpf (NONE) 02/27/25 10:34 Hyaline Casts 1.65 /lpf 02/27/25 10:34 All radiology interpretation(s) finalized by discharge Discharge Plan Discharge Patient Disposition: Home Clinical Impression: Gastroenteritis Condition: Stable Prescriptions: New promethazine 25 mg tablet 25 mg PO Q6H PRN (Reason: nausea and vomiting) Qty: 20 0RF No Action acetaminophen 500 mg Tablet 1,000 mg PO Q6H PRN (Reason: Pain) Discharge Orders: Discharge ED (Routine); Ordered 02/27/25 Ordered By: Heriberto Givens Referrals: Kenneth Hudson MD [Primary Care Provider, Family Practice] Discharge Diet: Clear Liquid Discharge Activity: Increase activity as tolerated Patient Instructions: Opioid Safety, Pain Management, Patient Portal & Lillie Instructions Activity Restrictions/Additional Instructions: Thank you for choosing [facility] for your healthcare needs today. It is very important that you follow up as instructed or that you return to the Emergency Department should you have concerns or if your condition changes or worsens in any way. You are seen in the emergency room with complaints of abdominal pain cramping and diarrhea. CT does not show any signs of obstruction. There is signs of enteritis. Print Language: Thai Coding Level of Care Code ED Supervisor Warping Department for Fatmata Nur
[2025-02-27] MEDS: iohexol 350 mg/mL 500 mL Btl (per mL) IV (10:33)
[2025-02-27 11:00] LABS: Glucose Urine UA 2+ (Normal); Nitrate Urine Negative (Negative)
[2025-02-27 11:05] LABS: Add Urine Microscopic? YES
[2025-02-27 11:21] LABS: Specific Gravity, Urine 1.046 (1.005-1.030)
[2025-02-27] MEDS: morphine 4 mg/mL SDV 1 mL IVP (12:03)
[2025-02-27 12:05] VITALS: BP 97/58; PULSE 78; O2SAT 95
[2025-02-27 12:39] VITALS: BP 97/58; PULSE 73; O2SAT 93
== END 2025-02-27 12:40 | disposition home or self-care (01) ==
PROVIDERS: Emergency Provider Family Medicine; PCP Family Medicine
DX: K52.9 Noninfective gastroenteritis and colitis, unspecified (principal); E11.9 Type 2 diabetes mellitus without complications; I10 Essential (primary) hypertension
CPT/HCPCS: 36415; 74177; 80053; 81001; 85025; 96374; 99285; J2270

== ENCOUNTER 2025-03-25 06:58 | Outpatient (CLI) | payer BC, SELFPAY ==
--- NOTE | 2025-03-25 07:15 | MR_ITS ---
WS: [id number] MRI OF THE ABDOMEN WITHOUT GADOLINIUM ENHANCEMENT TECHNIQUE: Coronal T2 Fase BH, Axial T2 Fase BH, Axial T2 FS BH, Zxial 3D Pugh BH, Axial DWI BH, 2D MRCP Radial BH, 3D MRCP (Resp), and Axial 3D Dyn BH Post sequences. CLINICAL INFORMATION: Right renal mass COMPARISON: 02/27/2025 FINDINGS: Previously described RIGHT upper pole renal lesion measuring 9 mm poorly visualized on the T2 imaging. Lesion does not significantly enhance. This most likely represents a complex hemorrhagic or proteinaceous cyst but difficult to further evaluate due to size. Similar-appearing adjacent lesion in the upper pole. Second lesion measures approximately 8 mm. Normal liver and spleen. Normal GE junction. Adrenal glands are normal. No hydronephrosis in either kidney. Incidental 5 mm RIGHT renal cyst. Celiac and SMA are patent. Normal caliber upper abdominal aorta. MR/MR abdomen wo/w con* [id number] Impression: Previously described RIGHT renal lesion does not significantly and is not entir abida cystic on the T2 images. This likely presents a complex hemorrhagic or prot einaceous cyst. Recommend 12-month ultrasound follow-up
[2025-03-25] MEDS: gadobenate dimeglumine 20 mL vial IV (07:50)
== END 2025-03-25 06:59 | disposition home or self-care (01) ==
LOC: RAD 06:59
PROVIDERS: PCP Family Medicine; Visit Provider Family Medicine
DX: N28.89 Other specified disorders of kidney and ureter (principal)
CPT/HCPCS: 74183

== ENCOUNTER 2025-04-04 15:50 | Outpatient (CLI) | payer BC, SELFPAY ==
--- NOTE | 2025-04-04 16:00 | US_ITS ---
WS: [id number] RENAL ULTRASOUND HISTORY: Right renal complex hemorrhagic cyst follow up COMPARISON: MRI 03/25/2025, CT 02/27/2025 TECHNIQUE: 2-D and color Doppler imaging of the kidney submitted. Right kidney: 11.0 cm x 6.2 cm x 6.1 cm. Cortex: 1.1 cm Normal echogenicity with no hydronephrosis or mass. Left kidney: 11.0 cm x 5.0 cm x 5.1 cm. Cortex: 1.0 cm Normal echogenicity with no hydronephrosis or mass. Aorta: Normal. Urinary Bladder: Normal distention. Mild prostate gland enlargement and heterogeneity. Prostate measures 3.9 x 3.6 x 4.6 cm. US/US renal BI* [id number] IMPRESSION: 1. No cystic or solid mass identified by ultrasound. This is probably due to t he small size of the mass associated with the RIGHT kidney. Mass was also poorl y visualized by MRI. Consider follow-up CT abdomen and pelvis with renal mass p rotocol, with and without IV contrast. This should be performed in 6 to 12 shad hs from this time. 2. Mild prostate enlargement.
== END 2025-04-04 15:51 | disposition home or self-care (01) ==
PROVIDERS: PCP Family Medicine; Visit Provider Family Medicine
DX: N28.89 Other specified disorders of kidney and ureter (principal); N28.1 Cyst of kidney, acquired
CPT/HCPCS: 76770